=== PATIENT | female | born 1970 | race Caucasian/White ===

== ENCOUNTER 2016-12-19 12:39 | Inpatient (IN) | payer MEDICARE, OTHER ==
[~2016-12-19] VITALS: Ht 154.9 cm; Wt 46.4 kg
[2016-12-19] MEDS ORDERED: SODIUM CHLORIDE 0.9% 1L BAG IV* STA (13:17)
[2016-12-19] MEDS ORDERED: CEFEPIME 2GM/50 ML (PMX) 50 ML IVPB STA (13:17)
[2016-12-19] MEDS ORDERED: VANCOMYCIN 1 GM (PMX) 250 ML IVPB ONE (13:30)
[2016-12-19 13:53] LABS: ADD SCAN DIFF NO
[2016-12-19 13:54] LABS: ABNORMAL IP MESSAGE 1; HEMATOCRIT 53.5 % (37.0-47.0); HEMOGLOBIN 17.5 g/dl (12.0-16.0); MEAN CORPUSCULAR HEMOGLOBIN 29.2 pg (29.0-33.0); MEAN CORPUSCULAR HGB CONC 32.7 g/dl (32.0-37.0); MEAN CORPUSCULAR VOLUME 89.3 fl (82.0-101.0); MEAN PLATELET VOLUME 11.6 fl (7.4-10.4); PLATELET COUNT 188 10^3/UL (140-415); RED BLOOD COUNT 5.99 10^6/ul (4.20-5.40); RED CELL DISTRIBUTION WIDTH 14.3 % (11.5-14.5); WHITE BLOOD COUNT 27.6 10^3/ul (4.8-10.8)
--- NOTE | 2016-12-19 14:04 | RADRPT ---
PROCEDURE: XR Chest. CLINICAL INDICATION: chest pain, sepsis TECHNIQUE: Single frontal view of the chest was obtained COMPARISON: None FINDINGS: The heart and mediastinum are within normal limits. There is elevation of the right diaphragm. The lungs are clear. There is no pleural effusion or pneumothorax. RPTAT: AA IMPRESSION: No acute disease. .Jacob Milan MD, MD Date Time Electronically viewed and signed by .Jacob Milan MD, MD on 12/19/2016 14:04 .S/
[2016-12-19 14:17] LABS: ALANINE AMINOTRANSFERASE 55 IU/L (13-69); ALBUMIN 4.4 g/dl (3.3-4.9); ALBUMIN/GLOBULIN RATIO 1.62; ALKALINE PHOSPHATASE 80 IU/L (42-121); ANION GAP 17 (8-16); ASPARTATE AMINO TRANSFERASE 34 IU/L (15-46); BILIRUBIN,INDIRECT 1.7 mg/dl (0-1.1); BILIRUBIN,TOTAL 1.7 mg/dl (0.2-1.3); BLOOD UREA NITROGEN 15 mg/dl (7-20); CALCIUM 9.4 mg/dl (8.4-10.2); CARBON DIOXIDE 24 mmol/L (21-31); CHLORIDE 104 mmol/L (97-110); GLUCOSE 123 mg/dl (70-220); POTASSIUM 4.2 mmol/L (3.5-5.1); SODIUM 141 mmol/L (135-144); TOTAL PROTEIN 7.1 g/dl (6.1-8.1)
[2016-12-19 14:19] LABS: ADD UMIC YES; UR BILIRUBIN (Dip) NEGATIVE (NEGATIVE); UR BLOOD (Dip) TRACE (NEGATIVE); UR CLARITY CLEAR (CLEAR); UR COLOR YELLOW (YELLOW); UR GLUCOSE (Dip) NEGATIVE (NEGATIVE); UR KETONES (Dip) 40 (NEGATIVE); UR LEUKOCYTE ESTERASE (Dip) NEGATIVE (NEGATIVE); UR NITRITE (Dip) POSITIVE (NEGATIVE); UR TOTAL PROTEIN (Dip) 1+ (NEGATIVE); UR UROBILINOGEN (Dip) 0.2 E.U./dL (0.1-1.0)
[2016-12-19 14:34] LABS: UR BACTERIA MANY
[2016-12-19 14:36] LABS: TROPONIN-I < 0.012 ng/ml (0.00-0.12)
[2016-12-19 14:48] LABS: LYMPHOCYTES # 0.3 10^3/ul (0.8-2.9); MONOCYTE # 1.1 10^3/ul (0.3-0.9); NEUTROPHIL # 25.9 10^3/ul (1.6-7.5)
--- NOTE | 2016-12-19 14:48 | ERA ---
ER Documentation Chief Complaint Date/Time DATE: 12/19/16 TIME: 14:34 Chief Complaint Sent from for eval r/o infection HPI This is an unfortunate 46-year-old female with a history of multiple sclerosis. The patient is completely immobile and relatively a phasic. She communicates with yes or no answers. The patient's family is here and states that she has had a low-grade fever yesterday with 1 or 2 episodes of diarrhea. She then noticed that her mouth looks red and infected. The patient's mouth is chronically open but that yesterday and today the patient is not wanting to eat anything stating that she is in pain. The pain location is in her mouth. The patient denies any other areas of pain. ROS All systems reviewed and are negative except as per history of present illness. Medications Home Meds No Active Prescriptions or Reported Meds Allergies Allergies: Coded Allergies: No Known Allergy (Unverified , 12/19/16) PMhx/Soc History of Surgery: No Anesthesia Reaction: No Hx Neurological Disorder: No Hx Respiratory Disorders: No Hx Cardiac Disorders: No Hx Psychiatric Problems: No Hx Miscellaneous Medical Probl: Yes (MS) Hx Alcohol Use: No Hx Substance Use: No Hx Tobacco Use: No Smoking Status: Never smoker FmHx Family History: No coronary disease Physical Exam Vitals Vital Signs Date Time Temp Pulse Resp B/P Pulse Ox O2 Delivery O2 Flow Rate FiO2 12/19/16 14:43 100 16 141/87 100 Room Air 12/19/16 12:43 98.3 116 20 116/88 100 Physical Exam Const: Well-developed, well-nourished, immobile Head: Atraumatic, normocephalic Eyes: Normal Conjunctiva, PERRLA, EOMI, normal sclera, no nystagmus ENT: Normal External Ears, Nose, diffusely poor dentition, there is erythema and swelling to the upper hard palate in the anterior part of the mouth near the tooth sockets. No abscess.. Neck: Full range of passive motion. No meningismus, no lymphadenopathy. Resp: Clear to auscultation bilaterally, no wheezing, rhonchi, rales Cardio: Regular rate and rhythm, no murmurs, S1 S2 present Abd: Soft, non tender x 4, non distended. Normal bowel sounds, no guarding or rebound, no pulsitile abdominal masses or bruits Skin: No petechiae or rashes, no ecchymosis , no maculopapular rash Back: No midline or flank tenderness Ext: No cyanosis, or edema, no spontaneous range of motion, normal inspection,vascularly intact x 4 Neur: Awake and alert, STR 0/5 x 4, sensation intact x 4 Psych: Unable to assess] Result Diagram: 12/19/16 1330 12/19/16 1330 Results 24 hrs Laboratory Tests Test 12/19/16 13:30 12/19/16 13:40 White Blood Count 27.610^3/ul Red Blood Count 5.9910^6/ul Hemoglobin 17.5g/dl Hematocrit 53.5% Mean Corpuscular Volume 89.3fl Mean Corpuscular Hemoglobin 29.2pg Mean Corpuscular Hemoglobin Concent 32.7g/dl Red Cell Distribution Width 14.3% Platelet Count 72166^3/UL Mean Platelet Volume 11.6fl Neutrophils % 94.0% Band Neutrophils % 1.0% Lymphocytes % 1.0% Monocytes % 4.0% Neutrophils # 25.910^3/ul Lymphocytes # 0.310^3/ul Monocytes # 1.110^3/ul Sodium Level 141mmol/L Potassium Level 4.2mmol/L Chloride Level 104mmol/L Carbon Dioxide Level 24mmol/L Anion Gap 17 Blood Urea Nitrogen 15mg/dl Creatinine 0.70mg/dl Glucose Level 123mg/dl Lactic Acid Level 2.5mmol/L Calcium Level 9.4mg/dl Total Bilirubin 1.7mg/dl Direct Bilirubin 0.00mg/dl Indirect Bilirubin 1.7mg/dl Aspartate Amino Transf (AST/SGOT) 34IU/L Alanine Aminotransferase (ALT/SGPT) 55IU/L Alkaline Phosphatase 80IU/L Troponin I < 0.012ng/ml Total Protein 7.1g/dl Albumin 4.4g/dl Globulin 2.70g/dl Albumin/Globulin Ratio 1.62 Urine Color YELLOW Urine Clarity CLEAR Urine pH 6.0 Urine Specific [place] 1.025 Urine Ketones 40 Urine Nitrite POSITIVE Urine Bilirubin NEGATIVE Urine Urobilinogen 0.2 E.U./dL Urine Leukocyte Esterase NEGATIVE Urine Microscopic RBC 5-10/HPF Urine Microscopic WBC 5-10/HPF Urine Epithelial Cells FEW Urine Bacteria MANY Urine Hemoglobin TRACE Urine Glucose NEGATIVE% Urine Total Protein 1+ Current Medications Medications (Trade) Dose Ordered Sig/Nicci Route PRN Reason Start Time Stop Time Status Last Admin Dose Admin Sodium Chloride 1550 ml 1,550 ml BOLUS OVER 2 HOURS STAT IV* 12/19/16 13:17 12/19/16 13:19 DC 12/19/16 13:49 Cefepime HCl 50 ml @ 100 mls/hr ONCE STAT IVPB 12/19/16 13:17 12/19/16 13:46 DC 12/19/16 13:55 Vancomycin HCl 250 ml @ 125 mls/hr ONCE ONCE IVPB 12/19/16 13:30 12/19/16 15:29 12/19/16 14:36 Sodium Chloride (NS) 1,000 ml @ 80 mls/hr [id number] IV 12/19/16 14:53 12/20/16 03:22 Ondansetron HCl (Zofran Inj) 4 mg ER BRIDGE PRN IV NAUSEA AND/OR VOMITING 12/19/16 15:00 12/20/16 14:59 Acetaminophen (Tylenol Tab) 650 mg ER BRIDGE PRN PO MILD PAIN/FEVER 12/19/16 15:00 12/20/16 14:59 Procedures/MDM Patient is elevated white blood count and does have a urinary tract infection. Patient does have a infection along the inner gingival upper palate and part of the hard palate. Patient has had some diarrhea but says she has no abdominal pain. I will however order a CT scan of the abdomen and pelvis to rule out any possible intra -abdominal pathology. Patient's lactate level is 2.5 and elevated. Admit MDM: Patient's infectious symptoms have not stabilized and the patient is at risk of rapid decompensation. The patient will be admitted for careful hydration, antibiotic therapy, and infectious source control. Severe Sepsis criteria: Infectious source: Mouth, urine End organ damage indicated by: Elevated lactate Lactate > 2.0 mmol/L Hypotension (SBP < 90 or >40 mmHG drop or MAP < 65) Acute Resp Failure (sat < 92% w/o oxygen) Production Corrugator > 2.0 INR > 1.5 Plt < 100 Bili > 2 Sepsis Management: Time of recognition of severe sepsis/septic shock: 1415 Within 3 hours of recognition: Blood cultures x 2 before broad-spectrum antibiotics: Yes 30 ml/kg NS bolus completed Initial lactate 2.5 Repeat lactate pending Accepting Care Team Current data and ongoing care discussed. Time: Admitting Physician: Quote Clerk(s): Outstanding Data: None Critical Care Time: 30 minutes Treatments/Evaluations: Close monitoring and treatment of unstable vital signs, cardiorespiratory, and neurologic status, while maintaining tight balance of fluid, respiratory, and cardiac interventions. This includes the administration of emergency fluid management while maintaining close respiratory support as well as the provision of immediate and broad-spectrum antibiotic therapy, while performing a simultaneous assessment for possible sources in order to direct targeted therapy. This time includes discussing the case with the patient and the patient's family. This time also includes the consideration for invasive and chemical support to prevent cardiopulmonary collapse. This time does not include all procedures stated elsewhere in this record. This time also includes reviewing old records, labs and radiological studies. This time includes examining and re-examining the patient. Additionally, this time also includes arranging care with admitting and consulting physicians. Spoke with Dr. angeles who wants to have me call ENT is consult spoke with dr davis of ENT who will see Departure Diagnosis: Primary Impression: Sepsis Qualified Code: A41.9 - Sepsis, due to unspecified organism Additional Impressions: Urinary tract infection Qualified Code: N30.00 - Acute cystitis without hematuria Infection of mouth Condition: Stable ZHANE BAUER DO Dec 19, 2016 14:44
[2016-12-19] MEDS ORDERED: SOD CHLORIDE 0.9% 1,000 ML IV SCH (14:53)
[2016-12-19] MEDS ORDERED: ONDANSETRON 4 MG INJ IV PRN ×2 (15:00→16:30)
[2016-12-19] MEDS ORDERED: ACETAMINOPHEN 325 MG TAB PO PRN ×2 (15:00→16:30)
[2016-12-19] MEDS ORDERED: metroNIDAZOLE 500 MG/NS (PMX) 100 ML IVPB ONE (16:00)
[2016-12-19] MEDS ORDERED: IODIXANOL LOCM 100 ML BTL ONE (16:13)
[2016-12-19] MEDS ORDERED: SOD CHLORIDE 0.9% 100 ML ONE (16:13)
[2016-12-19] MEDS ORDERED: DOCUSATE SODIUM 100 MG CAP PO PRN (16:30)
[2016-12-19] MEDS ORDERED: VANCOMYCIN IV PER PHARMACY XX SCH (16:30)
[2016-12-19] MEDS ORDERED: MAGNESIUM HYDROXIDE 30ML CUP PO PRN (16:30)
[2016-12-19] MEDS ORDERED: NACL 0.9% 3 ML SYG IV SCH (16:30)
--- NOTE | 2016-12-19 16:49 | HP ---
Date/Time of Note Date/Time of Note DATE: 12/19/16 TIME: 16:41 Assessment/Plan VTE Prophylaxis VTE Prophylaxis Intervention: heparin Assessment/Plan Chief Complaint/Hosp Course 46 y/o with advanced MS admitted for decreased low grade fever, poor PO intake and oral pain. In ER found to be in sepsis with WBC of 26. Problems: Assessment/Plan #sepsis-multiple potential sources including GI given diarrhea, urinary, hand anaerobic infection of hard palate -f/u cultures -c diff -ENT consult to evaluate for oral infection -IVF -broad empiric abx coverage: Vanc, Cefepime and flagyl (for potential anaerobic infection including c diff -tele monitoring -repeat lactic acid in am -low threshold for ID consult #MS-advanced. Followed outpatient by Dr. NADIA Gamez -hold copaxone for now Dispo: patient likely to be hospitalized >2 days. HPI/ROS Admit Date/Time Admit Date/Time 12/19/2016 Hx of Present Illness 46 y/o female with advanced MS. Brought in by family for low grade fever, diarrhea x2, decreased po intake and hard palate pain. Patient also had one episode of emesis last night. Patient can only give simple one word answers. Denies abdominal pain but endorses oral pain. In ER patient had sepsis workup. Was empirically treated with IV vanc, cefepime. CT abdomen, pelvis done, no acute findings at this time.Found to have UTI. ENT called to evaluate hard palate for possible infection. History provided mostly by family. Primary point of contact is Lizbet, daughter. ROS See HPI. No chest pain, sob, cough, dysuria, abdominal pain. No active nausea or vomiting. PMH/Family/Social Past Medical History Multiple sclerosis-relapsing and progressive FM Hx- non contributory for this patient SH: lives with sister, mom, dad. Sister primary caregiver Social History Smoking Status: Never smoker Exam/Review of Systems Vital Signs Vitals Vital Signs Date Time Temp Pulse Resp B/P Pulse Ox O2 Delivery O2 Flow Rate FiO2 12/19/16 14:43 100 16 141/87 100 Room Air 12/19/16 12:43 98.3 Exam Exam GEN-No acute distress. Cachectic. Only months simple one word answers HEENT- Erythematous and tender upper hard palate, no scleral icterus CV-rrr, nml s1/s2, no m/r/g pulm-CTAB on anterior exam Abdomen-soft, nt, nd, +BS Ext-no c/c/e, contracted x 4 Labs Result Diagram: 12/19/16 1330 12/19/16 1330 Medications Medications Current Medications Sodium Chloride 1,000 ml @ 80 mls/hr [id number] IV ; Start 12/19/16 at 14:53; Stop 12/20/16 at 03:22 Metronidazole (Flagyl 500 Mg (Pmx)) 100 ml @ 100 mls/hr ONCE ONCE IVPB ; Start 12/19/16 at 16:00; Stop 12/19/16 at 16:59 JERAMIE BRUNSON MD Dec 19, 2016 16:49
--- NOTE | 2016-12-19 17:33 | RADRPT ---
PROCEDURE: CT abdomen and pelvis with contrast. CLINICAL INDICATION: Periumbilical abdominal pain TECHNIQUE: CT scan of the abdomen and pelvis with contrast was performed on the CT scanner. The p atient was scanned with 90 cc of Omnipaque 300 intravenous contrast. Oral contrast was not administ ered. 3-D coronal and sagittal reformatted images were obtained from the axial source images. Exam D L P 329 mgy/cm. CTD vol 6 mgy. One or more of the following dose reduction techniques were used: Automated exposure control Adjustment of the mA and/or kV according to patient size. Use of iterative reconstruction technique. COMPARISON: None. FINDINGS: CT abdomen: The lung bases are clear. The heart size is normal, without pericardial thickening or effusion. The ascending aorta is mildly prominent at 3.7 x 3.7 cm. There is a 9 cm cephalocaudad by 7 x 6 cm hemangioma involving the right lobe of the liver diffusely .. The spleen is normal in size and homogeneous in density. The stomach is partially collapsed, bu t is grossly unremarkable. The pancreas as visualized is normal. There are multiple gallstones with in the gallbladder with mild prominence of the gallbladder wall, likely due to hypoproteinemia. The adrenal glands are symmetric and normal. The kidneys are symmetrically unremarkable as well. N o renal calculus or obstructive uropathy or mass lesion is seen. The aorta is of normal caliber. There is no retroperitoneal lymphadenopathy. The nola hepatis reg ion is clear. The bowel and mesentery, as visualized, are equally unremarkable. There is mild abdom inal ascites. CT pelvis: The small bowel loops situated within the pelvis are unremarkable. The appendix is normal. The sigmoid colon and rectum are all unremarkable. No mass, lymphadenopathy, or free fluid is seen. No acute inflammation is seen. There are no findings of acute diverticulitis, obstruction or coli tis. There is severe fecal impaction with associated mild constipation. The pelvic organs are unremarkable. The pelvic sidewalls and inguinal regions are clear. The surrounding osseous structures are unremarkable. No osteolytic or osteoblastic lesion is detect ed. IMPRESSION: 1. No findings of free air, bowel perforation, bowel obstruction or definite acute inflammation. M ultiple gallstones within the gallbladder with prominence of the gallbladder wall, likely related to hypoproteinemia. 2. Mild ascites, mild constipation, severe fecal impaction, and benign, 9 cm hepatic hemangioma. M ild prominence of the thoracic aorta at 3.7 x 3.7 cm. RPTAT: RR .Araseli Porras MD, Date Time Electronically viewed and signed by .Araseli Porras MD, on 12/19/2016 17:32 .F/
[2016-12-19 20:02] VITALS: PULSE 106
[2016-12-19 20:04] VITALS: BP 114/77; RESP 16
[2016-12-19] MEDS: HEPARIN 5,000 UNIT/0.5 ML VIAL SC SCH (20:18)
[2016-12-19 20:30] VITALS: Ht 154.9 cm; Wt 46.4 kg
[2016-12-19] MEDS ORDERED: HEPARIN 5,000 UNIT/0.5 ML VIAL SC SCH (21:00)
[2016-12-19] MEDS: SOD CHLORIDE 0.9% 1,000 ML IV SCH (21:43)
[2016-12-19] MEDS: metroNIDAZOLE 500 MG/NS (PMX) 100 ML IVPB SCH (21:45)
[2016-12-19] MEDS: CEFEPIME 2GM/50 ML (PMX) 50 ML IVPB SCH (22:43)
[2016-12-20] VITALS (13 sets, daily range): BP systolic 100–125; BP diastolic 51–85; PULSE 104–119; RESP 16–19
[2016-12-20] MEDS: SOD CHLORIDE 0.9% 1,000 ML IV SCH ×3 (02:23→22:23)
[2016-12-20] MEDS: VANCOMYCIN 750 MG in SOD CHLORIDE 0.9% 150 ML IVPB SCH ×2 (02:57→16:18)
[2016-12-20] MEDS ORDERED: PENDING SANTYL ORDER FOR WOUND CARE XX PRN (05:00)
[2016-12-20] MEDS: CEFEPIME 2GM/50 ML (PMX) 50 ML IVPB SCH ×3 (05:17→21:13)
[2016-12-20 05:43] LABS: ADD SCAN DIFF NO
[2016-12-20 06:01] LABS: ABNORMAL IP MESSAGE 1; BASOPHIL # 0.1 10^3/ul (0.0-0.1); BASOPHILS % 0.2 % (0.0-2.0); HEMATOCRIT 43.2 % (37.0-47.0); HEMOGLOBIN 14.2 g/dl (12.0-16.0); LYMPHOCYTES # 1.1 10^3/ul (0.8-2.9); LYMPHOCYTES % 5.1 % (15.0-51.0); MEAN CORPUSCULAR HEMOGLOBIN 29.3 pg (29.0-33.0); MEAN CORPUSCULAR HGB CONC 32.9 g/dl (32.0-37.0); MEAN CORPUSCULAR VOLUME 89.1 fl (82.0-101.0); MEAN PLATELET VOLUME 11.4 fl (7.4-10.4); MONOCYTE # 0.8 10^3/ul (0.3-0.9); MONOCYTES % 3.5 % (0.0-11.0); NEUTROPHIL # 20.1 10^3/ul (1.6-7.5); NEUTROPHILS % 90.7 % (39.0-77.0); PLATELET COUNT 177 10^3/UL (140-415); RED BLOOD COUNT 4.85 10^6/ul (4.20-5.40); RED CELL DISTRIBUTION WIDTH 14.6 % (11.5-14.5); WHITE BLOOD COUNT 22.1 10^3/ul (4.8-10.8)
[2016-12-20] MEDS: metroNIDAZOLE 500 MG/NS (PMX) 100 ML IVPB SCH ×3 (06:11→22:20)
[2016-12-20 06:28] LABS: ALBUMIN 2.8 g/dl (3.3-4.9); ALBUMIN/GLOBULIN RATIO 1.33; BILIRUBIN,INDIRECT 1.1 mg/dl (0-1.1); BILIRUBIN,TOTAL 1.1 mg/dl (0.2-1.3); CALCIUM 8.3 mg/dl (8.4-10.2); CREATININE 0.55 mg/dl (0.44-1.00); MAGNESIUM 1.6 mg/dl (1.7-2.5); POTASSIUM 3.2 mmol/L (3.5-5.1); TOTAL PROTEIN 4.9 g/dl (6.1-8.1)
--- NOTE | 2016-12-20 07:48 | CONS ---
Date/Time of Note Date/Time of Note DATE: 12/20/16 TIME: 07:44 Assessment/Plan Assessment/Plan Problems: (1) Multiple sclerosis Comment: severe, progressive... non verbal now (2) Urinary tract infection Status: Acute Comment: cxs still pd... on broad abx...WBC sl less today Qualifiers: Urinary tract infection type: acute cystitis Hematuria presence: without hematuria Qualified Code: N30.00 - Acute cystitis without hematuria (3) Sepsis Status: Acute Comment: blood/urine cxs pd... on broad abx Qualifiers: Sepsis type: sepsis due to unspecified organism Qualified Code: A41.9 - Sepsis, due to unspecified organism (4) Infection of mouth Status: Acute Comment: await ENT hardeep Andrade (5) Constipation Comment: noted on CT... will give laxatives Consultation Date/Type/Reason Admit Date/Time Dec 19, 2016 at 14:55 Initial Consult Date Type of Consultation: neph 24 HR Interval Summary Free Text/Dictation non verbal... seems comfortable tho... awaiting ENT hardeep Andrade Exam/Review of Systems Vital Signs Vitals Vital Signs Date Time Temp Pulse Resp B/P Pulse Ox O2 Delivery O2 Flow Rate FiO2 12/20/16 07:28 99.8 115 18 100/51 94 12/19/16 14:43 Room Air Intake and Output 12/19/16 12/19/16 12/20/16 15:00 23:00 07:00 Intake Total 50 ml 1350 ml 750 ml Balance 50 ml 1350 ml 750 ml Exam Constitutional: alert, non-verbal Head: normocephalic Neck: supple Respiratory: clear to auscultation Cardiovascular: regular rate and rhythm Gastrointestinal: soft Extremities: normal pulses Results Result Diagram: 12/20/16 0510 12/20/16 0510 Results 24 hrs Laboratory Tests Test 12/19/16 13:30 12/19/16 13:40 12/20/16 05:10 White Blood Count 27.6 H 22.1 H Red Blood Count 5.99 H 4.85 Hemoglobin 17.5 H 14.2 Hematocrit 53.5 H 43.2 Mean Corpuscular Volume 89.3 89.1 Mean Corpuscular Hemoglobin 29.2 29.3 Mean Corpuscular Hemoglobin Concent 32.7 32.9 Red Cell Distribution Width 14.3 14.6 H Platelet Count 188 177 Mean Platelet Volume 11.6 H 11.4 H Neutrophils % 94.0 H 90.7 H Band Neutrophils % 1.0 Lymphocytes % 1.0 L 5.1 L Monocytes % 4.0 3.5 Neutrophils # 25.9 H 20.1 H Lymphocytes # 0.3 L 1.1 Monocytes # 1.1 H 0.8 Sodium Level 141 141 Potassium Level 4.2 3.2 L Chloride Level 104 114 H Carbon Dioxide Level 24 17 L Anion Gap 17 H 13 Blood Urea Nitrogen 15 15 Creatinine 0.70 0.55 Glucose Level 123 91 Lactic Acid Level 2.5 H 0.8 Calcium Level 9.4 8.3 L Total Bilirubin 1.7 H 1.1 Direct Bilirubin 0.00 0.00 Indirect Bilirubin 1.7 H 1.1 Aspartate Amino Transf (AST/SGOT) 34 15 Alanine Aminotransferase (ALT/SGPT) 55 42 Alkaline Phosphatase 80 65 Troponin I < 0.012 Total Protein 7.1 4.9 #L Albumin 4.4 2.8 #L Globulin 2.70 2.10 Albumin/Globulin Ratio 1.62 1.33 Urine Color YELLOW Urine Clarity CLEAR Urine pH 6.0 Urine Specific [place] 1.025 Urine Ketones 40 Urine Nitrite POSITIVE H Urine Bilirubin NEGATIVE Urine Urobilinogen 0.2 E.U./dL Urine Leukocyte Esterase NEGATIVE Urine Microscopic RBC 5-10 Urine Microscopic WBC 5-10 Urine Epithelial Cells FEW Urine Bacteria MANY Urine Hemoglobin TRACE Urine Glucose NEGATIVE Urine Total Protein 1+ H Eosinophils % 0.0 Basophils % 0.2 Nucleated Red Blood Cells % 0.0 Eosinophils # 0.0 Basophils # 0.1 Nucleated Red Blood Cells # 0.0 Magnesium Level 1.6 L Medications Medications Current Medications Sodium Chloride (NS) 1,000 ml @ 100 mls/hr Q10H IV Last administered on t 21:43; Admin Dose 100 MLS/HR; Start 12/19/16 at 16:23; Stop 12/21/16 at 16: 22 Ondansetron HCl (Zofran Inj) 4 mg Q6H PRN IV NAUSEA AND/OR VOMITING; Start 05/27 at 16:30 Acetaminophen (Tylenol Tab) 650 mg Q6H PRN PO PAIN LEVEL 1-3 OR FEVER; Start at 16:30 Docusate Sodium (Colace) 100 mg Q12H PRN PO CONSTIPATION; Start 12/19/16 at 16: 30 Magnesium Hydroxide 30 ml 30 ml DAILY PRN PO CONSTIPATION; Start 12/19/16 at 16 :30 Cefepime HCl 50 ml @ 100 mls/hr Q8 IVPB Last administered on 12/20/16 05:17; Admin Dose 100 MLS/HR; Start 12/19/16 at 22:00 Metronidazole 100 ml @ 100 mls/hr Q8 IVPB Last administered on 12/20/16 06:11 ; Admin Dose 100 MLS/HR; Start 12/19/16 at 22:00 Vancomycin HCl/ Sodium Chloride (Vancocin/NS) 150 ml @ 75 mls/hr Q12H IVPB Last administered on 12/20/16 02:57; Admin Dose 75 MLS/HR; Start 12/20/16 at 02 :00 Heparin Sodium (Porcine) (Heparin (5000 Units/0.5 ml)) 5,000 unit BID SC Last administered on 12/19/16 20:18; Admin Dose 5,000 UNIT; Start 12/19/16 at 21:00 Miscellaneous Information (Pending Santyl Order For Wound Care) This patient martinez... PRN PRN XX WOUND CARE; Start 12/20/16 at 05:00 SOPHIA MONROE MD Dec 20, 2016 07:48
[2016-12-20] MEDS ORDERED: SORBITOL 70% 30ML CUP PO ONE (09:30)
[2016-12-20] MEDS: HEPARIN 5,000 UNIT/0.5 ML VIAL SC SCH ×2 (09:32→21:16)
[2016-12-20] MEDS: POTASSIUM CHLORIDE 50 ML IVPB SCH ×3 (09:36→12:22)
[2016-12-20] MEDS ORDERED: MAGNESIUM SULFATE 3 GM in SOD CHLORIDE 0.9% 100 ML IVPB ONE (10:00)
[2016-12-20] MEDS ORDERED: SORBITOL 70% 30ML CUP PO PRN (10:00)
[2016-12-20] MEDS: morphine 4 MG/ML VIAL IV PRN ×2 (12:21→18:01)
--- NOTE | 2016-12-20 13:42 | HP ---
DATE OF ADMISSION: 12/19/2016 HISTORY OF PRESENT ILLNESS: Sandra Lopez is a 46-year-old female admitted yesterday with an oral in fection, some palatal swelling was noted and ENT was consulted to evaluate. She is presently on van comycin and metronidazole as well as cefepime for her infection. She is mostly nonverbal due to her progressive severe multiple sclerosis but she is able to answer simple questions. PAST MEDICAL HISTORY: Severe progressive multiple sclerosis, UTI, sepsis. PAST SURGICAL HISTORY: Noncontributory. ALLERGIES: NO KNOWN DRUG ALLERGIES. MEDICATIONS: 1. Zofran. 2. Colace. 3. Magnesium. 4. Cefepime. 5. Metronidazole. 6. Vancomycin. 7. Heparin. SOCIAL HISTORY: Negative for alcohol, tobacco or drug abuse. FAMILY HISTORY: Negative for any heart, lung, kidney failure, liver disease. REVIEW OF SYSTEMS: Difficult because of her difficulty communicating. PHYSICAL EXAMINATION: HEENT: On examination today the nose shows midline septum. Mucosa without erythema, edema. Oral c avity and oropharynx showed dry mucous membranes. She does have some mild swelling of the anterior palate just posterior to teeth 7, 8, 9 and 10. It is mildly erythematous and her gums seem to be ten beth as well. The oropharynx was without lesion. NECK: Reveals no lymphadenopathy or thyromegaly. Trachea is midline. ___ without lesion. IMPRESSION: Oral infection. PLAN: At this point, the antibiotics she is on more than cover her infection and to her it does see m to be better today compared to yesterday. With that being said, I would continue the cefepime or a similar cephalosporin for 7 to 10 days total, based on her progression. If there are any questions or concerns, please feel free to reconsult at any time. Dictated By: STEPH BETH/DENISSE Conf#: [id number] DID#: [id number]
[2016-12-21] VITALS (12 sets, daily range): BP systolic 120–156; BP diastolic 70–90; PULSE 88–100; RESP 18–19
[2016-12-21] MEDS: VANCOMYCIN 750 MG in SOD CHLORIDE 0.9% 150 ML IVPB SCH (03:21)
[2016-12-21] MEDS: metroNIDAZOLE 500 MG/NS (PMX) 100 ML IVPB SCH (05:38)
[2016-12-21] MEDS: CEFEPIME 2GM/50 ML (PMX) 50 ML IVPB SCH ×3 (05:38→21:25)
[2016-12-21] MEDS: SOD CHLORIDE 0.9% 1,000 ML IV SCH (05:39)
[2016-12-21 07:04] LABS: ADD SCAN DIFF NO
[2016-12-21 07:13] LABS: BASOPHILS % 0.3 % (0.0-2.0); EOSINOPHILS # 0.1 10^3/ul (0.0-0.5); EOSINOPHILS % 0.8 % (0.0-7.0); HEMATOCRIT 40.7 % (37.0-47.0); HEMOGLOBIN 13.4 g/dl (12.0-16.0); LYMPHOCYTES # 1.2 10^3/ul (0.8-2.9); LYMPHOCYTES % 8.9 % (15.0-51.0); MEAN CORPUSCULAR HEMOGLOBIN 29.8 pg (29.0-33.0); MEAN CORPUSCULAR HGB CONC 32.9 g/dl (32.0-37.0); MEAN CORPUSCULAR VOLUME 90.6 fl (82.0-101.0); MEAN PLATELET VOLUME 10.8 fl (7.4-10.4); MONOCYTE # 0.5 10^3/ul (0.3-0.9); MONOCYTES % 4.1 % (0.0-11.0); NEUTROPHIL # 11.3 10^3/ul (1.6-7.5); NEUTROPHILS % 85.5 % (39.0-77.0); PLATELET COUNT 159 10^3/UL (140-415); RED BLOOD COUNT 4.49 10^6/ul (4.20-5.40); WHITE BLOOD COUNT 13.2 10^3/ul (4.8-10.8)
[2016-12-21 07:43] LABS: ALBUMIN/GLOBULIN RATIO 1.25; CALCIUM 8.1 mg/dl (8.4-10.2); CREATININE 0.55 mg/dl (0.44-1.00); POTASSIUM 3.8 mmol/L (3.5-5.1); TOTAL PROTEIN 5.4 g/dl (6.1-8.1)
--- NOTE | 2016-12-21 07:50 | CONS ---
Date/Time of Note Date/Time of Note DATE: 12/21/16 TIME: 07:47 Assessment/Plan Assessment/Plan Problems: (1) Urinary tract infection Status: Acute Comment: GNR... ID pd, but cont improvement in leukocytosis on current abx Qualifiers: Urinary tract infection type: acute cystitis Hematuria presence: without hematuria Qualified Code: N30.00 - Acute cystitis without hematuria (2) Sepsis Status: Acute Comment: blood cxs (-)...(+) UTI tho... markedly better w hydration + abx Qualifiers: Sepsis type: sepsis due to unspecified organism Qualified Code: A41.9 - Sepsis, due to unspecified organism (3) Infection of mouth Status: Acute Comment: pt has refused any NGT or PEG... as is much more alert now, will revisit speech eval/swallow eval (4) Multiple sclerosis Comment: severe, progressive... at baseline (5) Constipation Comment: see if hydration + lax will help Consultation Date/Type/Reason Admit Date/Time Dec 19, 2016 at 14:55 Type of Consultation: neph 24 HR Interval Summary Free Text/Dictation much more awake. alert... answering questions... more engaged Exam/Review of Systems Vital Signs Vitals Vital Signs Date Time Temp Pulse Resp B/P Pulse Ox O2 Delivery O2 Flow Rate FiO2 12/21/16 07:25 98.6 91 19 128/82 98 12/19/16 14:43 Room Air Intake and Output 12/20/16 12/20/16 12/21/16 15:00 23:00 07:00 Intake Total 100 ml 650 ml Balance 100 ml 650 ml Exam Constitutional: alert Psych: no complaints Head: normocephalic Eyes: nl conjunctiva Respiratory: clear to auscultation Cardiovascular: regular rate and rhythm Gastrointestinal: soft Extremities: normal pulses Results Result Diagram: 12/21/16 0625 12/20/16 0510 Results 24 hrs Laboratory Tests Test 12/21/16 00:59 12/21/16 06:25 Vancomycin Level Trough 14.6 White Blood Count 13.2 #H Red Blood Count 4.49 Hemoglobin 13.4 Hematocrit 40.7 Mean Corpuscular Volume 90.6 Mean Corpuscular Hemoglobin 29.8 Mean Corpuscular Hemoglobin Concent 32.9 Red Cell Distribution Width 15.0 H Platelet Count 159 Mean Platelet Volume 10.8 H Neutrophils % 85.5 H Lymphocytes % 8.9 L Monocytes % 4.1 Eosinophils % 0.8 Basophils % 0.3 Nucleated Red Blood Cells % 0.0 Neutrophils # 11.3 H Lymphocytes # 1.2 Monocytes # 0.5 Eosinophils # 0.1 Basophils # 0.0 Nucleated Red Blood Cells # 0.0 Medications Medications Current Medications Sodium Chloride (NS) 1,000 ml @ 100 mls/hr Q10H IV Last administered on 05:39; Admin Dose 100 MLS/HR; Start 12/19/16 at 16:23; Stop 12/21/16 at 16: 22 Ondansetron HCl (Zofran Inj) 4 mg Q6H PRN IV NAUSEA AND/OR VOMITING; Start 05/27 at 16:30 Acetaminophen (Tylenol Tab) 650 mg Q6H PRN PO PAIN LEVEL 1-3 OR FEVER; Start at 16:30 Docusate Sodium (Colace) 100 mg Q12H PRN PO CONSTIPATION; Start 12/19/16 at 16: 30 Magnesium Hydroxide 30 ml 30 ml DAILY PRN PO CONSTIPATION; Start 12/19/16 at 16 :30 Cefepime HCl 50 ml @ 100 mls/hr Q8 IVPB Last administered on 12/21/16 05:38; Admin Dose 100 MLS/HR; Start 12/19/16 at 22:00 Metronidazole 100 ml @ 100 mls/hr Q8 IVPB Last administered on 12/21/16 05:38 ; Admin Dose 100 MLS/HR; Start 12/19/16 at 22:00 Vancomycin HCl/ Sodium Chloride (Vancocin/NS) 150 ml @ 75 mls/hr Q12H IVPB Last administered on 12/21/16 03:21; Admin Dose 75 MLS/HR; Start 12/20/16 at 02 :00 Heparin Sodium (Porcine) (Heparin (5000 Units/0.5 ml)) 5,000 unit BID SC Last administered on 12/20/16 21:16; Admin Dose 5,000 UNIT; Start 12/19/16 at 21:00 Miscellaneous Information (Pending [facility]) This patient martinez... PRN PRN XX WOUND CARE; Start 12/20/16 at 05:00 Sorbitol (Sorbitol 70%) 30 ml BID PRN PO CONSTIPATION; Start 12/20/16 at 10:00 Morphine Sulfate (morphine) 2 mg Q2H PRN IV PAIN; Start 12/20/16 at 12:30 Morphine Sulfate (morphine) 4 mg Q3H PRN IV PAIN LEVEL 7-10 Last administered on 12/20/16t 18:01; Admin Dose 4 MG; Start 12/20/16 at 12:30 SOPHIA MONROE MD Dec 21, 2016 07:50
[2016-12-21] MEDS: HEPARIN 5,000 UNIT/0.5 ML VIAL SC SCH ×2 (08:04→21:49)
[2016-12-21] MEDS: DEXTROSE 5%-0.9% NACL 1,000 ML IV SCH ×2 (08:06→17:30)
[2016-12-22] VITALS (10 sets, daily range): BP systolic 99–145; BP diastolic 77–94; PULSE 73–81; RESP 16–19
[2016-12-22] MEDS ORDERED: VITAMIN A & D 5 GM OINT PACKET TOP ONE (04:37)
[2016-12-22] MEDS: CEFEPIME 2GM/50 ML (PMX) 50 ML IVPB SCH ×3 (05:18→23:25)
[2016-12-22] MEDS: DEXTROSE 5%-0.9% NACL 1,000 ML IV SCH (05:21)
[2016-12-22 06:15] LABS: ADD SCAN DIFF NO
[2016-12-22 06:35] LABS: BASOPHILS % 0.4 % (0.0-2.0); EOSINOPHILS # 0.2 10^3/ul (0.0-0.5); EOSINOPHILS % 2.6 % (0.0-7.0); HEMATOCRIT 37.3 % (37.0-47.0); HEMOGLOBIN 12.7 g/dl (12.0-16.0); LYMPHOCYTES # 1.2 10^3/ul (0.8-2.9); LYMPHOCYTES % 15.2 % (15.0-51.0); MONOCYTE # 0.4 10^3/ul (0.3-0.9); NEUTROPHIL # 6.2 10^3/ul (1.6-7.5); NEUTROPHILS % 76.4 % (39.0-77.0); PLATELET COUNT 176 10^3/UL (140-415); RED BLOOD COUNT 4.24 10^6/ul (4.20-5.40); RED CELL DISTRIBUTION WIDTH 14.8 % (11.5-14.5); WHITE BLOOD COUNT 8.2 10^3/ul (4.8-10.8)
[2016-12-22 07:32] LABS: ALBUMIN 2.3 g/dl (3.3-4.9); ALBUMIN/GLOBULIN RATIO 1.04; BILIRUBIN,INDIRECT 0.8 mg/dl (0-1.1); BILIRUBIN,TOTAL 0.8 mg/dl (0.2-1.3); CALCIUM 7.6 mg/dl (8.4-10.2); CREATININE 0.39 mg/dl (0.44-1.00); POTASSIUM 3.2 mmol/L (3.5-5.1); TOTAL PROTEIN 4.5 g/dl (6.1-8.1)
--- NOTE | 2016-12-22 07:41 | PN ---
Date/Time of Note Date/Time of Note DATE: 12/22/16 TIME: 07:39 Assessment/Plan VTE Prophylaxis VTE Prophylaxis Intervention: other Lines/Catheters IV Catheter Type (from Nrsg): Peripheral IV Urinary Cath still in place: No Assessment/Plan Assessment/Plan 1. UTI being treated, will check post void residual 2. Will rev with Dr. Meredith, swallowing status 3. MS, advanced 4. Labs rev Subjective 24 Hr Interval Summary Respiratory: No cough, No shortness of breath Gastrointestinal: No pain Exam/Review of Systems Vital Signs Vitals Vital Signs Date Time Temp Pulse Resp B/P Pulse Ox O2 Delivery O2 Flow Rate FiO2 12/22/16 07:33 98.2 80 16 131/83 99 12/19/16 14:43 Room Air Intake and Output 12/21/16 12/21/16 12/22/16 15:00 23:00 07:00 Intake Total 50 ml 1050 ml Balance 50 ml 1050 ml Exam Neck: No jvd Cardiovascular: regular rate and rhythm Gastrointestinal: soft Extremities: No edema (and no calf tend) Neurological: No other (generalized weakness) Results Result Diagram: 12/22/16 0530 12/22/16 0530 Results 24 hrs Laboratory Tests Test 12/22/16 05:30 White Blood Count 8.2 # Red Blood Count 4.24 Hemoglobin 12.7 Hematocrit 37.3 Mean Corpuscular Volume 88.0 Mean Corpuscular Hemoglobin 30.0 Mean Corpuscular Hemoglobin Concent 34.0 Red Cell Distribution Width 14.8 H Platelet Count 176 Mean Platelet Volume 11.0 H Neutrophils % 76.4 Lymphocytes % 15.2 Monocytes % 5.0 Eosinophils % 2.6 Basophils % 0.4 Nucleated Red Blood Cells % 0.0 Neutrophils # 6.2 Lymphocytes # 1.2 Monocytes # 0.4 Eosinophils # 0.2 Basophils # 0.0 Nucleated Red Blood Cells # 0.0 Sodium Level 141 Potassium Level 3.2 L Chloride Level 117 H Carbon Dioxide Level 19 L Anion Gap 8 Blood Urea Nitrogen 8 Creatinine 0.39 L Glucose Level 117 # Lactic Acid Level 0.7 Calcium Level 7.6 L Total Bilirubin 0.8 Direct Bilirubin 0.00 Indirect Bilirubin 0.8 Aspartate Amino Transf (AST/SGOT) 9 L Alanine Aminotransferase (ALT/SGPT) 29 Alkaline Phosphatase 48 Total Protein 4.5 L Albumin 2.3 L Globulin 2.20 Albumin/Globulin Ratio 1.04 Medications Medications Current Medications Ondansetron HCl (Zofran Inj) 4 mg Q6H PRN IV NAUSEA AND/OR VOMITING; Start 05/27 at 16:30 Acetaminophen (Tylenol Tab) 650 mg Q6H PRN PO PAIN LEVEL 1-3 OR FEVER; Start at 16:30 Docusate Sodium (Colace) 100 mg Q12H PRN PO CONSTIPATION; Start 12/19/16 at 16: 30 Magnesium Hydroxide 30 ml 30 ml DAILY PRN PO CONSTIPATION; Start 12/19/16 at 16 :30 Cefepime HCl (Maxipime 2gm/50 ml (Pmx)) 50 ml @ 100 mls/hr Q8 IVPB Last administered on 12/22/16 05:18; Admin Dose 100 MLS/HR; Start 12/19/16 at 22:00 Heparin Sodium (Porcine) (Heparin (5000 Units/0.5 ml)) 5,000 unit BID SC Last administered on 12/21/16 21:49; Admin Dose 5,000 UNIT; Start 12/19/16 at 21:00 Miscellaneous Information (Pending [facility] Order For Wound Care) This patient martinez... PRN PRN XX WOUND CARE; Start 12/20/16 at 05:00 Sorbitol (Sorbitol 70%) 30 ml BID PRN PO CONSTIPATION; Start 12/20/16 at 10:00 Morphine Sulfate (morphine) 2 mg Q2H PRN IV PAIN; Start 12/20/16 at 12:30 Morphine Sulfate 4 mg 4 mg Q3H PRN IV PAIN LEVEL 7-10 Last administered on 12/20 18:01; Admin Dose 4 MG; Start 12/20/16 at 12:30 Dextrose/Sodium Chloride (D5-NS) 1,000 ml @ 100 mls/hr Q10H IV Last administered on 12/22/16 05:21; Admin Dose 100 MLS/HR; Start 12/21/16 at 08:00 LAURITA ESPINO MD Dec 22, 2016 07:41
[2016-12-22] MEDS: HEPARIN 5,000 UNIT/0.5 ML VIAL SC SCH ×2 (08:30→20:56)
[2016-12-22 10:16] LABS: ADD SCAN DIFF NO
[2016-12-22 10:32] LABS: BASOPHILS % 0.2 % (0.0-2.0); EOSINOPHILS # 0.2 10^3/ul (0.0-0.5); EOSINOPHILS % 2.1 % (0.0-7.0); HEMATOCRIT 39.8 % (37.0-47.0); HEMOGLOBIN 13.2 g/dl (12.0-16.0); LYMPHOCYTES # 1.1 10^3/ul (0.8-2.9); LYMPHOCYTES % 14.1 % (15.0-51.0); MEAN CORPUSCULAR HEMOGLOBIN 29.3 pg (29.0-33.0); MEAN CORPUSCULAR HGB CONC 33.2 g/dl (32.0-37.0); MEAN CORPUSCULAR VOLUME 88.2 fl (82.0-101.0); MEAN PLATELET VOLUME 11.1 fl (7.4-10.4); MONOCYTE # 0.4 10^3/ul (0.3-0.9); MONOCYTES % 4.8 % (0.0-11.0); NEUTROPHIL # 6.4 10^3/ul (1.6-7.5); NEUTROPHILS % 78.6 % (39.0-77.0); PLATELET COUNT 168 10^3/UL (140-415); RED BLOOD COUNT 4.51 10^6/ul (4.20-5.40); WHITE BLOOD COUNT 8.1 10^3/ul (4.8-10.8)
[2016-12-22 10:42] LABS: CALCIUM 7.7 mg/dl (8.4-10.2); CREATININE 0.42 mg/dl (0.44-1.00); PHOSPHORUS 1.2 mg/dl (2.5-4.9)
[2016-12-22 10:45] LABS: POTASSIUM 2.8 mmol/L (3.5-5.1)
[2016-12-22 14:10] LABS: Allen Test ACCEPTAB; Arterial Base Excess -5.1 mmol/L (-3.0-3); Arterial COHb 0.1 % (0.0-3.0); Arterial Fraction of Oxyhgb 97.2 % (93.0-99.0); Arterial HCO3 16.7 mmol/L (22.0-26.0); Arterial MetHb 0.4 % (0.0-1.5); Arterial Total Hemglobin 14.2 g/dl (12.0-18.0); MODE ROOM AIR
[2016-12-22] MEDS: D5W-0.45 NACL + KCL 40 MEQ 1,000 ML IV SCH (14:45)
[2016-12-22] MEDS ORDERED: POTASSIUM PHOSPHATE 30 MM in SOD CHLORIDE 0.9% 250 ML IVPB SCH (15:00)
[2016-12-22] MEDS ORDERED: POTASSIUM CHLORIDE 30 MEQ in DEXTROSE 5% 250 ML IVPB SCH (15:00)
[2016-12-23] VITALS (11 sets, daily range): BP systolic 113–134; BP diastolic 75–92; PULSE 70–90; RESP 15–18
[2016-12-23 00:50] LABS: PHOSPHORUS 4.2 mg/dl (2.5-4.9); POTASSIUM 4.1 mmol/L (3.5-5.1)
[2016-12-23] MEDS: D5W-0.45 NACL + KCL 40 MEQ 1,000 ML IV SCH (04:20)
[2016-12-23] MEDS: CEFEPIME 2GM/50 ML (PMX) 50 ML IVPB SCH ×3 (05:12→20:27)
[2016-12-23 05:58] LABS: ADD SCAN DIFF NO
[2016-12-23 06:11] LABS: BASOPHILS % 0.4 % (0.0-2.0); EOSINOPHILS # 0.2 10^3/ul (0.0-0.5); EOSINOPHILS % 2.5 % (0.0-7.0); HEMATOCRIT 40.4 % (37.0-47.0); HEMOGLOBIN 13.6 g/dl (12.0-16.0); LYMPHOCYTES # 1.6 10^3/ul (0.8-2.9); LYMPHOCYTES % 21.4 % (15.0-51.0); MEAN CORPUSCULAR HEMOGLOBIN 29.5 pg (29.0-33.0); MEAN CORPUSCULAR HGB CONC 33.7 g/dl (32.0-37.0); MEAN CORPUSCULAR VOLUME 87.6 fl (82.0-101.0); MEAN PLATELET VOLUME 10.9 fl (7.4-10.4); MONOCYTE # 0.4 10^3/ul (0.3-0.9); MONOCYTES % 5.5 % (0.0-11.0); NEUTROPHIL # 5.2 10^3/ul (1.6-7.5); NEUTROPHILS % 69.8 % (39.0-77.0); PLATELET COUNT 171 10^3/UL (140-415); RED BLOOD COUNT 4.61 10^6/ul (4.20-5.40); RED CELL DISTRIBUTION WIDTH 14.8 % (11.5-14.5); WHITE BLOOD COUNT 7.5 10^3/ul (4.8-10.8)
[2016-12-23 06:55] LABS: CALCIUM 7.8 mg/dl (8.4-10.2); CREATININE 0.38 mg/dl (0.44-1.00); MAGNESIUM 1.6 mg/dl (1.7-2.5); PHOSPHORUS 2.6 mg/dl (2.5-4.9); POTASSIUM 4.3 mmol/L (3.5-5.1)
--- NOTE | 2016-12-23 07:47 | PN ---
Date/Time of Note Date/Time of Note DATE: 12/23/16 TIME: 07:43 Assessment/Plan VTE Prophylaxis VTE Prophylaxis Intervention: other Lines/Catheters IV C[facility]ter Type (from [facility]): Peripheral IV Urinary Cath still in place: No Assessment/Plan Assessment/Plan 1. UTI is being treated w/o obstructive uropathy, ct scan noted and post void residual<100 cc 2. Electrolyte imbalance addressed, Mag will replaced today. 3. Swallow-Speech evaluation to be done today 4. Advanced neurologic deficit, stable Subjective 24 Hr Interval Summary Respiratory: No cough, No shortness of breath Cardiovascular: chest pain Gastrointestinal: no complaints Exam/Review of Systems Vital Signs Vitals Vital Signs Date Time Temp Pulse Resp B/P Pulse Ox O2 Delivery O2 Flow Rate FiO2 12/23/16 07:41 98.1 91 16 126/77 100 12/19/16 14:43 Room Air Intake and Output 12/22/16 12/22/16 12/23/16 14:59 22:59 06:59 Intake Total 50 ml 515 ml 1210 ml Balance 50 ml 515 ml 1210 ml Exam Neck: No jvd Respiratory: clear to auscultation Cardiovascular: regular rate and rhythm Gastrointestinal: soft Neurological: other (quadrapereisis, nods to questions) Results Result Diagram: 12/23/16 0530 12/23/16 0530 Results 24 hrs Laboratory Tests Test 12/22/16 09:40 12/22/16 13:30 12/22/16 23:14 12/23/16 05:30 White Blood Count 8.1 7.5 Red Blood Count 4.51 4.61 Hemoglobin 13.2 13.6 Hematocrit 39.8 40.4 Mean Corpuscular Volume 88.2 87.6 Mean Corpuscular Hemoglobin 29.3 29.5 Mean Corpuscular Hemoglobin Concent 33.2 33.7 Red Cell Distribution Width 15.0 H 14.8 H Platelet Count 168 171 Mean Platelet Volume 11.1 H 10.9 H Neutrophils % 78.6 H 69.8 Lymphocytes % 14.1 L 21.4 Monocytes % 4.8 5.5 Eosinophils % 2.1 2.5 Basophils % 0.2 0.4 Nucleated Red Blood Cells % 0.0 0.0 Neutrophils # 6.4 5.2 Lymphocytes # 1.1 1.6 Monocytes # 0.4 0.4 Eosinophils # 0.2 0.2 Basophils # 0.0 0.0 Nucleated Red Blood Cells # 0.0 0.0 Sodium Level 140 140 Potassium Level 2.8 *L 4.1 4.3 Chloride Level 115 H 116 H Carbon Dioxide Level 19 L 20 L Anion Gap 9 8 Blood Urea Nitrogen 6 L 4 L Creatinine 0.42 L 0.38 L Glucose Level 122 108 Calcium Level 7.7 L 7.8 L Phosphorus Level 1.2 L 4.2 # 2.6 Magnesium Level 1.8 1.6 L Blood Gas Specimen Source Blood arterial Arterial Blood Date Drawn 12/22/2016 2:01:01 PM Arterial Blood pH (Temp corrected) 7.465 H Arterial Blood pCO2 (Temp correct) 23.7 L Arterial Blood pO2 (Temp corrected) 95.4 Arterial Blood HCO3 16.7 L Arterial Blood Base Excess -5.1 L Arterial Blood Oxygen Saturation 97.7 Octavio Test ACCEPTAB Arterial Blood Gas Puncture Site Left Radial Arterial Blood Carboxyhemoglobin 0.1 Arterial Blood Methemoglobin 0.4 Blood Gas A-a O2 Differential 26.0 H Oxyhemoglobin Percent 97.2 Total Hemoglobin 14.2 Blood Gas Temperature 37.0 Blood Gas Modality ROOM AIR FiO2 21.0 Blood Gas Notified Whom JLD Blood Gas Notified Time 12/22/2016 2:10:38 PM Medications Medications Current Medications Ondansetron HCl (Zofran Inj) 4 mg Q6H PRN IV NAUSEA AND/OR VOMITING; Start 05/27 at 16:30 Acetaminophen (Tylenol Tab) 650 mg Q6H PRN PO PAIN LEVEL 1-3 OR FEVER; Start at 16:30 Docusate Sodium (Colace) 100 mg Q12H PRN PO CONSTIPATION; Start 12/19/16 at 16: 30 Magnesium Hydroxide 30 ml 30 ml DAILY PRN PO CONSTIPATION; Start 12/19/16 at 16 :30 Cefepime HCl (Maxipime 2gm/50 ml (Pmx)) 50 ml @ 100 mls/hr Q8 IVPB Last administered on 12/23/16 05:12; Admin Dose 100 MLS/HR; Start 12/19/16 at 22:00 Heparin Sodium (Porcine) (Heparin (5000 Units/0.5 ml)) 5,000 unit BID SC Last administered on 12/22/16 20:56; Admin Dose 5,000 UNIT; Start 12/19/16 at 21:00 Miscellaneous Information (Pending [facility] Order For Wound Care) This patient martinez... PRN PRN XX WOUND CARE; Start 12/20/16 at 05:00 Sorbitol (Sorbitol 70%) 30 ml BID PRN PO CONSTIPATION; Start 12/20/16 at 10:00 Morphine Sulfate (morphine) 2 mg Q2H PRN IV PAIN; Start 12/20/16 at 12:30 Morphine Sulfate 4 mg 4 mg Q3H PRN IV PAIN LEVEL 7-10 Last administered on 12/20 18:01; Admin Dose 4 MG; Start 12/20/16 at 12:30 Potassium Chloride/Dextrose/ Sod Cl (D5-1/2ns + KCl 40 Meq) 1,000 ml @ 75 mls/ hr [id number] IV Last administered on 12/22/16 14:45; Admin Dose 75 MLS/HR; Start 12/22/16 at 15:00 LAURITA ESPINO MD Dec 23, 2016 07:47
[2016-12-23] MEDS: DEXTROSE 5%-0.45% NACL 1,000 ML IV SCH ×2 (08:05→22:18)
[2016-12-23] MEDS: HEPARIN 5,000 UNIT/0.5 ML VIAL SC SCH ×2 (08:09→20:53)
[2016-12-23] MEDS ORDERED: MAGNESIUM SULFATE 3 GM in SOD CHLORIDE 0.9% 100 ML IVPB ONE (09:00)
[2016-12-23] MEDS ORDERED: BARIUM SULFATE 135 ML (E-Z HD) PO ONE (14:20)
--- NOTE | 2016-12-23 15:45 | RADRPT ---
Vent Rate: 73 bpm RR Interval: 0 msec [place] Interval: 148 msec QRS Duration: 60 msec QT Interval: 382 msec QTC Interval: 420 msec P-R-T [place]: 35 - -27 - 45 degrees Normal sinus rhythm Normal ECG Electronically Signed By: Jose Matos [id number]
--- NOTE | 2016-12-23 18:29 | RADRPT ---
PROCEDURE: Video-fluoroscopy swallowing study. CLINICAL INDICATION: Dysphagia. TECHNIQUE: Fluoroscopic guided video swallowing study was done in conjunction with the speech ther apist. The study was confined to the oral, pharyngeal, and cervical phases of the swallowing mechani sm. 2.1 minutes of fluoroscopy time was used. COMPARISON: No prior study is available for comparison. FINDINGS: Images demonstrate silent aspiration during swallowing. IMPRESSION: 1. Abnormal study with silent aspiration during swallowing. 2. Please refer to the speech therapist's recommendations for future feedings. RPTAT: QQ .Andrei Vail MD, MD Date Time Electronically viewed and signed by .Andrei Vail MD, on 12/23/2016 18:29 .R/
[2016-12-24] VITALS (13 sets, daily range): BP systolic 96–140; BP diastolic 54–99; PULSE 72–92; RESP 15–20
[2016-12-24] MEDS: CEFEPIME 2GM/50 ML (PMX) 50 ML IVPB SCH ×3 (06:00→21:50)
[2016-12-24 07:07] LABS: ADD SCAN DIFF NO
[2016-12-24 07:19] LABS: BASOPHIL # 0.1 10^3/ul (0.0-0.1); BASOPHILS % 0.7 % (0.0-2.0); EOSINOPHILS # 0.2 10^3/ul (0.0-0.5); HEMATOCRIT 42.5 % (37.0-47.0); HEMOGLOBIN 14.2 g/dl (12.0-16.0); LYMPHOCYTES # 1.2 10^3/ul (0.8-2.9); LYMPHOCYTES % 16.2 % (15.0-51.0); MEAN CORPUSCULAR HGB CONC 33.4 g/dl (32.0-37.0); MEAN CORPUSCULAR VOLUME 86.9 fl (82.0-101.0); MEAN PLATELET VOLUME 11.8 fl (7.4-10.4); MONOCYTE # 0.5 10^3/ul (0.3-0.9); MONOCYTES % 6.5 % (0.0-11.0); NEUTROPHIL # 5.6 10^3/ul (1.6-7.5); NEUTROPHILS % 73.7 % (39.0-77.0); RED BLOOD COUNT 4.89 10^6/ul (4.20-5.40); RED CELL DISTRIBUTION WIDTH 14.6 % (11.5-14.5); WHITE BLOOD COUNT 7.6 10^3/ul (4.8-10.8)
[2016-12-24 07:26] LABS: PLATELET COUNT 130 10^3/UL (140-415)
[2016-12-24 08:06] LABS: CALCIUM 8.1 mg/dl (8.4-10.2); CREATININE 0.39 mg/dl (0.44-1.00); MAGNESIUM 2.2 mg/dl (1.7-2.5); PHOSPHORUS 2.2 mg/dl (2.5-4.9); POTASSIUM 3.5 mmol/L (3.5-5.1)
[2016-12-24 08:12] LABS: THYROID STIMULATING HORMONE 3.41 MIU/L (0.465-4.680)
[2016-12-24] MEDS: DEXTROSE 5%-0.45% NACL 1,000 ML IV SCH (09:15)
[2016-12-24] MEDS: HEPARIN 5,000 UNIT/0.5 ML VIAL SC SCH ×2 (09:25→21:56)
--- NOTE | 2016-12-24 13:48 | PN ---
Date/Time of Note Date/Time of Note DATE: 12/24/16 TIME: 13:38 Assessment/Plan VTE Prophylaxis VTE Prophylaxis Intervention: heparin Lines/Catheters IV [facility] Type (from [facility]): Peripheral IV Urinary Cath still in place: No Reason Cath still needed: urinary retention Assessment/Plan Chief Complaint/Hosp Course 1. Multiple sclerosis with cachexia, dysphagia. 2 Dysphagia , patient failed swallowing study. She apparently does not want a gastric feeding tube 3. UTI, on antibiotics 4. Oral thrush, will start Diflucan 5. IV fluids and will adjust IV fluids Problems: Subjective 24 Hr Interval Summary Free Text/Dictation Patient is awake but has limited verbal ability. I asked her if she has pain and she indicated no. Constitutional: poor po, requiring IVF Respiratory: no complaints Cardiovascular: no complaints Genitourinary: no complaints Neurologic: other Exam/Review of Systems Vital Signs Vitals Vital Signs Date Time Temp Pulse Resp B/P Pulse Ox O2 Delivery O2 Flow Rate FiO2 12/24/16 12:24 72 12/24/16 11:41 98.3 18 132/83 96 12/24/16 08:27 Nasal Cannula 2.0 Intake and Output 12/23/16 12/23/16 12/24/16 15:00 23:00 07:00 Intake Total 156 ml 600 ml 950 ml Balance 156 ml 600 ml 950 ml Exam She has white patches on her tongue and mouth consistent with oral thrush. Constitutional: alert, frail Respiratory: clear to auscultation, diminished breath sounds Cardiovascular: regular rate and rhythm Gastrointestinal: soft Musculoskeletal: nl extremities to inspection Results Result Diagram: 12/24/16 0550 12/24/16 0633 Results 24 hrs Laboratory Tests Test 12/24/16 05:50 12/24/16 06:33 12/24/16 06:50 White Blood Count 7.6 Red Blood Count 4.89 Hemoglobin 14.2 Hematocrit 42.5 Mean Corpuscular Volume 86.9 Mean Corpuscular Hemoglobin 29.0 Mean Corpuscular Hemoglobin Concent 33.4 Red Cell Distribution Width 14.6 H Platelet Count 130 #L Mean Platelet Volume 11.8 H Neutrophils % 73.7 Lymphocytes % 16.2 Monocytes % 6.5 Eosinophils % 2.0 Basophils % 0.7 Nucleated Red Blood Cells % 0.0 Neutrophils # 5.6 Lymphocytes # 1.2 Monocytes # 0.5 Eosinophils # 0.2 Basophils # 0.1 Nucleated Red Blood Cells # 0.0 Sodium Level 142 Potassium Level 3.5 Chloride Level 114 H Carbon Dioxide Level 21 Anion Gap 11 Blood Urea Nitrogen 3 L Creatinine 0.39 L Glucose Level 88 Calcium Level 8.1 L Phosphorus Level 2.2 L Magnesium Level 2.2 Vitamin B12 Level 613 Thyroid Stimulating Hormone (TSH) 3.410 Medications Medications Current Medications Ondansetron HCl (Zofran Inj) 4 mg Q6H PRN IV NAUSEA AND/OR VOMITING; Start 05/27 at 16:30 Acetaminophen (Tylenol Tab) 650 mg Q6H PRN PO PAIN LEVEL 1-3 OR FEVER; Start at 16:30 Docusate Sodium (Colace) 100 mg Q12H PRN PO CONSTIPATION; Start 12/19/16 at 16: 30 Magnesium Hydroxide 30 ml 30 ml DAILY PRN PO CONSTIPATION; Start 12/19/16 at 16 :30 Cefepime HCl (Maxipime 2gm/50 ml (Pmx)) 50 ml @ 100 mls/hr Q8 IVPB Last administered on 12/24/16 06:00; Admin Dose 100 MLS/HR; Start 12/19/16 at 22:00 Heparin Sodium (Porcine) (Heparin (5000 Units/0.5 ml)) 5,000 unit BID SC Last administered on 12/24/16 09:25; Admin Dose 5,000 UNIT; Start 12/19/16 at 21:00 Miscellaneous Information (Pending [facility] Order For Wound Care) This patient martinez... PRN PRN XX WOUND CARE; Start 12/20/16 at 05:00 Sorbitol (Sorbitol 70%) 30 ml BID PRN PO CONSTIPATION; Start 12/20/16 at 10:00 Morphine Sulfate (morphine) 2 mg Q2H PRN IV PAIN; Start 12/20/16 at 12:30 Morphine Sulfate 4 mg 4 mg Q3H PRN IV PAIN LEVEL 7-10 Last administered on 12/20 18:01; Admin Dose 4 MG; Start 12/20/16 at 12:30 Potassium Chloride/ Potassium Phosphate/ Multivitamins/ Dextrose/Sodium Chloride (KCl/K Phos (Meq)/Infuvite/ D5-1/2ns) 1,012.2727 ml @ 70 mls/hr [id number] IV ; Start 12/24/16 at 15:00 JAMIR MCKEON MD Dec 24, 2016 13:48
[2016-12-24] MEDS: FLUCONAZOLE 100 MG/NS (PMX) 50 ML IVPB SCH (16:22)
[2016-12-24] MEDS: MULTIVITAMINS IV SCH (23:38)
[2016-12-24] MEDS: [UNRECOGNIZED DRUG - OTHER] IV SCH (23:38)
[2016-12-24] MEDS: POTASSIUM PHOSPHATE IV SCH (23:38)
[2016-12-24] MEDS: POTASSIUM CHLORIDE IV SCH (23:38)
[2016-12-25] VITALS (10 sets, daily range): BP systolic 111–139; BP diastolic 70–97; PULSE 67–78; RESP 16–18
[2016-12-25] MEDS: CEFEPIME 2GM/50 ML (PMX) 50 ML IVPB SCH ×3 (05:55→21:08)
[2016-12-25 06:27] LABS: ADD SCAN DIFF NO
[2016-12-25 06:34] LABS: BASOPHIL # 0.1 10^3/ul (0.0-0.1); BASOPHILS % 1.2 % (0.0-2.0); EOSINOPHILS # 0.2 10^3/ul (0.0-0.5); HEMATOCRIT 43.6 % (37.0-47.0); HEMOGLOBIN 14.5 g/dl (12.0-16.0); LYMPHOCYTES # 2.1 10^3/ul (0.8-2.9); LYMPHOCYTES % 28.7 % (15.0-51.0); MEAN CORPUSCULAR HEMOGLOBIN 29.4 pg (29.0-33.0); MEAN CORPUSCULAR HGB CONC 33.3 g/dl (32.0-37.0); MEAN CORPUSCULAR VOLUME 88.3 fl (82.0-101.0); MEAN PLATELET VOLUME 10.2 fl (7.4-10.4); MONOCYTE # 0.6 10^3/ul (0.3-0.9); NEUTROPHIL # 4.1 10^3/ul (1.6-7.5); NEUTROPHILS % 56.8 % (39.0-77.0); PLATELET COUNT 232 10^3/UL (140-415); RED BLOOD COUNT 4.94 10^6/ul (4.20-5.40); RED CELL DISTRIBUTION WIDTH 14.6 % (11.5-14.5); WHITE BLOOD COUNT 7.3 10^3/ul (4.8-10.8)
[2016-12-25] MEDS: POTASSIUM PHOSPHATE IV SCH ×2 (07:04→15:23)
[2016-12-25] MEDS: MULTIVITAMINS IV SCH ×2 (07:04→15:23)
[2016-12-25] MEDS: POTASSIUM CHLORIDE IV SCH ×2 (07:04→15:23)
[2016-12-25] MEDS: [UNRECOGNIZED DRUG - OTHER] IV SCH ×2 (07:04→15:23)
[2016-12-25 07:24] LABS: ALBUMIN/GLOBULIN RATIO 1.15; BILIRUBIN,INDIRECT 0.4 mg/dl (0-1.1); BILIRUBIN,TOTAL 0.4 mg/dl (0.2-1.3); CALCIUM 8.5 mg/dl (8.4-10.2); CREATININE 0.42 mg/dl (0.44-1.00); PHOSPHORUS 3.3 mg/dl (2.5-4.9); POTASSIUM 3.8 mmol/L (3.5-5.1); TOTAL PROTEIN 5.6 g/dl (6.1-8.1)
[2016-12-25] MEDS: HEPARIN 5,000 UNIT/0.5 ML VIAL SC SCH ×2 (10:26→21:21)
--- NOTE | 2016-12-25 15:24 | PN ---
Date/Time of Note Date/Time of Note DATE: 12/25/16 TIME: 15:22 Assessment/Plan VTE Prophylaxis VTE Prophylaxis Intervention: heparin Lines/Catheters IV C[facility] Type ([facility] Peripheral IV Urinary Cath still in place: No Assessment/Plan Assessment/Plan 1. Multiple sclerosis with cachexia, dysphagia. 2 Dysphagia , patient failed swallowing study. She apparently does not want a gastric feeding tube 3. UTI, on antibiotics 4. Oral thrush, on Diflucan 5. IV fluids and will adjust IV fluids. Labs reviewed Subjective 24 Hr Interval Summary Free Text/Dictation The patient is awake, she is non-verbal. Denies pain or discomfort. Appears in no distress. Exam/Review of Systems Vital Signs Vitals Vital Signs Date Time Temp Pulse Resp B/P Pulse Ox O2 Delivery O2 Flow Rate FiO2 12/25/16 12:04 74 12/25/16 11:10 98.1 18 119/86 95 12/24/16 08:27 Nasal Cannula 2.0 Intake and Output 12/24/16 12/24/16 12/25/16 15:00 23:00 07:00 Intake Total 1050 ml 900 ml Balance 1050 ml 900 ml Exam Constitutional: alert Neck: No jvd Respiratory: clear to auscultation Cardiovascular: regular rate and rhythm Gastrointestinal: soft Extremities: No edema Results Result Diagram: 12/25/16 0545 12/25/16 0545 Results 24 hrs Laboratory Tests Test 12/25/16 05:45 White Blood Count 7.3 Red Blood Count 4.94 Hemoglobin 14.5 Hematocrit 43.6 Mean Corpuscular Volume 88.3 Mean Corpuscular Hemoglobin 29.4 Mean Corpuscular Hemoglobin Concent 33.3 Red Cell Distribution Width 14.6 H Platelet Count 232 # Mean Platelet Volume 10.2 Neutrophils % 56.8 Lymphocytes % 28.7 Monocytes % 8.0 Eosinophils % 3.0 Basophils % 1.2 Nucleated Red Blood Cells % 0.0 Neutrophils # 4.1 Lymphocytes # 2.1 Monocytes # 0.6 Eosinophils # 0.2 Basophils # 0.1 Nucleated Red Blood Cells # 0.0 Sodium Level 144 Potassium Level 3.8 Chloride Level 113 H Carbon Dioxide Level 23 Anion Gap 12 Blood Urea Nitrogen 4 L Creatinine 0.42 L Glucose Level 92 Calcium Level 8.5 Phosphorus Level 3.3 Total Bilirubin 0.4 Direct Bilirubin 0.00 Indirect Bilirubin 0.4 Aspartate Amino Transf (AST/SGOT) 82 H Alanine Aminotransferase (ALT/SGPT) 56 Alkaline Phosphatase 56 Total Protein 5.6 L Albumin 3.0 L Globulin 2.60 Albumin/Globulin Ratio 1.15 Medications Medications Current Medications Ondansetron HCl (Zofran Inj) 4 mg Q6H PRN IV NAUSEA AND/OR VOMITING; Start 05/27 at 16:30 Acetaminophen (Tylenol Tab) 650 mg Q6H PRN PO PAIN LEVEL 1-3 OR FEVER; Start at 16:30 Docusate Sodium (Colace) 100 mg Q12H PRN PO CONSTIPATION; Start 12/19/16 at 16: 30 Magnesium Hydroxide 30 ml 30 ml DAILY PRN PO CONSTIPATION; Start 12/19/16 at 16 :30 Cefepime HCl (Maxipime 2gm/50 ml (Pmx)) 50 ml @ 100 mls/hr Q8 IVPB Last administered on 12/25/16 05:55; Admin Dose 100 MLS/HR; Start 12/19/16 at 22:00 Heparin Sodium (Porcine) (Heparin (5000 Units/0.5 ml)) 5,000 unit BID SC Last administered on 12/25/16 10:26; Admin Dose 5,000 UNIT; Start 12/19/16 at 21:00 Miscellaneous Information ([facility]) This patient martinez... PRN PRN XX WOUND CARE; Start 12/20/16 at 05:00 Sorbitol (Sorbitol 70%) 30 ml BID PRN PO CONSTIPATION; Start 12/20/16 at 10:00 Morphine Sulfate (morphine) 2 mg Q2H PRN IV PAIN; Start 12/20/16 at 12:30 Morphine Sulfate 4 mg 4 mg Q3H PRN IV PAIN LEVEL 7-10 Last administered on 12/20 18:01; Admin Dose 4 MG; Start 12/20/16 at 12:30 Potassium Chloride 10 meq/ Potassium Phosphate 10 meq/ Multivitamins 5 ml/ Dextrose/ Sodium Chloride 1,012.2727 ml @ 70 mls/hr [id number] IV Last administered on 12/25/16 07:04; Admin Dose 70 MLS/HR; Start 12/24/16 at 15:00 Fluconazole/ Sodium Chloride (Diflucan 100 Mg/ NS (Pmx)) 50 ml @ 50 mls/hr Q24H IVPB Last administered on 12/24/16t 16:22; Admin Dose 50 MLS/HR; Start at 16:00 LIS COATES MD Dec 25, 2016 15:24
[2016-12-25] MEDS: FLUCONAZOLE 100 MG/NS (PMX) 50 ML IVPB SCH (17:23)
[2016-12-26] VITALS (11 sets, daily range): BP systolic 104–145; BP diastolic 72–100; PULSE 68–93; RESP 15–20
[2016-12-26] MEDS: CEFEPIME 2GM/50 ML (PMX) 50 ML IVPB SCH ×3 (05:51→23:11)
[2016-12-26] MEDS: MULTIVITAMINS IV SCH (10:22)
[2016-12-26] MEDS: POTASSIUM PHOSPHATE IV SCH (10:22)
[2016-12-26] MEDS: [UNRECOGNIZED DRUG - OTHER] IV SCH (10:22)
[2016-12-26] MEDS: POTASSIUM CHLORIDE IV SCH (10:22)
[2016-12-26] MEDS: HEPARIN 5,000 UNIT/0.5 ML VIAL SC SCH ×2 (10:27→23:12)
--- NOTE | 2016-12-26 11:20 | PN ---
Date/Time of Note Date/Time of Note DATE: 12/26/16 TIME: 11:16 Assessment/Plan VTE Prophylaxis VTE Prophylaxis Intervention: heparin Lines/Catheters IV Catheter Type (from [facility]): Peripheral IV Urinary Cath still in place: No Assessment/Plan Chief Complaint/Hosp Course 1. Multiple sclerosis with cachexia, dysphagia. 2 Dysphagia , patient failed swallowing study. She apparently does not want a gastric feeding tube in the past. Family to discuss again today. 3. UTI, on antibiotics 4. Oral thrush, on Diflucan 5. IV fluids and will adjust IV fluids. Problems: Subjective 24 Hr Interval Summary Free Text/Dictation The patient is alert, non-verbal. she seems to answer questions appropriately. Nursing reports that her sister visited yesterday and discussed a feeding tube with the patient. I discussed with her as well. The family will be back today and hopefully a decision will be made. Exam/Review of Systems Vital Signs Vitals Vital Signs Date Time Temp Pulse Resp B/P Pulse Ox O2 Delivery O2 Flow Rate FiO2 12/26/16 08:12 80 12/26/16 07:41 98.1 18 138/76 97 12/24/16 08:27 Nasal Cannula 2.0 Intake and Output 12/25/16 12/25/16 12/26/16 15:00 23:00 07:00 Intake Total 1162.2727 ml 50 ml Balance 1162.2727 ml 50 ml Exam Head: normocephalic Neck: No jvd Respiratory: clear to auscultation Cardiovascular: regular rate and rhythm Extremities: No edema Results Result Diagram: 12/25/16 0545 12/25/16 0545 Medications Medications Current Medications Ondansetron HCl (Zofran Inj) 4 mg Q6H PRN IV NAUSEA AND/OR VOMITING; Start 05/27 at 16:30 Acetaminophen (Tylenol Tab) 650 mg Q6H PRN PO PAIN LEVEL 1-3 OR FEVER; Start at 16:30 Docusate Sodium (Colace) 100 mg Q12H PRN PO CONSTIPATION; Start 12/19/16 at 16: 30 Magnesium Hydroxide 30 ml 30 ml DAILY PRN PO CONSTIPATION; Start 12/19/16 at 16 :30 Cefepime HCl (Maxipime 2gm/50 ml (Pmx)) 50 ml @ 100 mls/hr Q8 IVPB Last administered on 12/26/16 05:51; Admin Dose 100 MLS/HR; Start 12/19/16 at 22:00 Heparin Sodium (Porcine) (Heparin (5000 Units/0.5 ml)) 5,000 unit BID SC Last administered on 12/26/16 10:27; Admin Dose 5,000 UNIT; Start 12/19/16 at 21:00 Miscellaneous Information (Pending [facility] Order For Wound Care) This patient martinez... PRN PRN XX WOUND CARE; Start 12/20/16 at 05:00 Sorbitol (Sorbitol 70%) 30 ml BID PRN PO CONSTIPATION; Start 12/20/16 at 10:00 Morphine Sulfate (morphine) 2 mg Q2H PRN IV PAIN; Start 12/20/16 at 12:30 Morphine Sulfate 4 mg 4 mg Q3H PRN IV PAIN LEVEL 7-10 Last administered on 12/20 18:01; Admin Dose 4 MG; Start 12/20/16 at 12:30 Potassium Chloride 10 meq/ Potassium Phosphate 10 meq/ Multivitamins 5 ml/ Dextrose/ Sodium Chloride 1,012.2727 ml @ 70 mls/hr [id number] IV Last administered on 12/26/16 10:22; Admin Dose 70 MLS/HR; Start 12/24/16 at 15:00 Fluconazole/ Sodium Chloride (Diflucan 100 Mg/ NS (Pmx)) 50 ml @ 50 mls/hr Q24H IVPB Last administered on 12/25/16 17:23; Admin Dose 50 MLS/HR; Start at 16:00 LIS COATES MD Dec 26, 2016 11:20
[2016-12-26] MEDS: FLUCONAZOLE 100 MG/NS (PMX) 50 ML IVPB SCH (17:29)
[2016-12-27] VITALS (8 sets, daily range): BP systolic 118–130; BP diastolic 57–90; PULSE 77–88; RESP 15–18
[2016-12-27] MEDS: POTASSIUM PHOSPHATE IV SCH (04:24)
[2016-12-27] MEDS: MULTIVITAMINS IV SCH (04:24)
[2016-12-27] MEDS: [UNRECOGNIZED DRUG - OTHER] IV SCH (04:24)
[2016-12-27] MEDS: POTASSIUM CHLORIDE IV SCH (04:24)
[2016-12-27] MEDS: CEFEPIME 2GM/50 ML (PMX) 50 ML IVPB SCH ×3 (06:30→23:35)
--- NOTE | 2016-12-27 07:59 | CONS ---
Date/Time of Note Date/Time of Note DATE: 12/27/16 TIME: 07:58 Assessment/Plan Assessment/Plan Problems: (1) Nutrition disorder Comment: await decision...PEG/Ft vs home w puree diet (2) Multiple sclerosis Comment: progressive (3) Urinary tract infection Status: Acute Comment: Rx w abx w response Qualifiers: Urinary tract infection type: acute cystitis Hematuria presence: without hematuria Qualified Code: N30.00 - Acute cystitis without hematuria Consultation Date/Type/Reason Admit Date/Time Dec 19, 2016 at 14:55 Type of Consultation: neph 24 HR Interval Summary Free Text/Dictation stable Exam/Review of Systems Vital Signs Vitals Vital Signs Date Time Temp Pulse Resp B/P Pulse Ox O2 Delivery O2 Flow Rate FiO2 12/27/16 04:00 97.8 71 15 118/57 94 12/26/16 20:00 Nasal Cannula 2.0 Intake and Output 12/26/16 12/26/16 12/27/16 15:00 23:00 07:00 Intake Total 870 ml Balance 870 ml Exam Constitutional: alert Psych: no complaints Neck: supple Respiratory: clear to auscultation Cardiovascular: regular rate and rhythm Gastrointestinal: nl liver, spleen, soft Results Result Diagram: 12/25/16 0545 12/25/16 0545 Medications Medications Current Medications Ondansetron HCl (Zofran Inj) 4 mg Q6H PRN IV NAUSEA AND/OR VOMITING; Start 05/27 at 16:30 Acetaminophen (Tylenol Tab) 650 mg Q6H PRN PO PAIN LEVEL 1-3 OR FEVER; Start at 16:30 Docusate Sodium (Colace) 100 mg Q12H PRN PO CONSTIPATION; Start 12/19/16 at 16: 30 Magnesium Hydroxide 30 ml 30 ml DAILY PRN PO CONSTIPATION; Start 12/19/16 at 16 :30 Cefepime HCl (Maxipime 2gm/50 ml (Pmx)) 50 ml @ 100 mls/hr Q8 IVPB Last administered on 12/27/16 06:30; Admin Dose 100 MLS/HR; Start 12/19/16 at 22:00 Heparin Sodium (Porcine) (Heparin (5000 Units/0.5 ml)) 5,000 unit BID SC Last administered on 12/26/16 23:12; Admin Dose 5,000 UNIT; Start 12/19/16 at 21:00 Misc[facility] This patient martinez... PRN PRN XX WOUND CARE; Start 12/20/16 at 05:00 Sorbitol (Sorbitol 70%) 30 ml BID PRN PO CONSTIPATION; Start 12/20/16 at 10:00 Morphine Sulfate (morphine) 2 mg Q2H PRN IV PAIN; Start 12/20/16 at 12:30 Morphine Sulfate 4 mg 4 mg Q3H PRN IV PAIN LEVEL 7-10 Last administered on 12/20 18:01; Admin Dose 4 MG; Start 12/20/16 at 12:30 Potassium Chloride 10 meq/ Potassium Phosphate 10 meq/ Multivitamins 5 ml/ Dextrose/ Sodium Chloride 1,012.2727 ml @ 70 mls/hr [id number] IV Last administered on 12/27/16 04:24; Admin Dose 70 MLS/HR; Start 12/24/16 at 15:00 Fluconazole/ Sodium Chloride (Diflucan 100 Mg/ NS (Pmx)) 50 ml @ 50 mls/hr Q24H IVPB Last administered on 12/26/16 17:29; Admin Dose 50 MLS/HR; Start at 16:00 SOPHIA MONROE MD Dec 27, 2016 07:59
[2016-12-27 09:34] LABS: ADD SCAN DIFF NO
[2016-12-27 09:41] LABS: BASOPHIL # 0.1 10^3/ul (0.0-0.1); BASOPHILS % 1.1 % (0.0-2.0); EOSINOPHILS # 0.2 10^3/ul (0.0-0.5); EOSINOPHILS % 2.1 % (0.0-7.0); HEMATOCRIT 44.3 % (37.0-47.0); HEMOGLOBIN 14.8 g/dl (12.0-16.0); LYMPHOCYTES # 1.8 10^3/ul (0.8-2.9); LYMPHOCYTES % 24.7 % (15.0-51.0); MEAN CORPUSCULAR HEMOGLOBIN 29.5 pg (29.0-33.0); MEAN CORPUSCULAR HGB CONC 33.4 g/dl (32.0-37.0); MEAN CORPUSCULAR VOLUME 88.4 fl (82.0-101.0); MEAN PLATELET VOLUME 11.1 fl (7.4-10.4); MONOCYTE # 0.4 10^3/ul (0.3-0.9); MONOCYTES % 5.9 % (0.0-11.0); NEUTROPHIL # 4.5 10^3/ul (1.6-7.5); NEUTROPHILS % 62.5 % (39.0-77.0); PLATELET COUNT 302 10^3/UL (140-415); RED BLOOD COUNT 5.01 10^6/ul (4.20-5.40); RED CELL DISTRIBUTION WIDTH 14.9 % (11.5-14.5); WHITE BLOOD COUNT 7.2 10^3/ul (4.8-10.8)
[2016-12-27 09:56] LABS: INR 0.99; PROTIME 13.1 Sec (12.2-14.2)
[2016-12-27 10:00] LABS: ALBUMIN 3.2 g/dl (3.3-4.9); ALBUMIN/GLOBULIN RATIO 1.28; BILIRUBIN,INDIRECT 0.4 mg/dl (0-1.1); BILIRUBIN,TOTAL 0.4 mg/dl (0.2-1.3); CALCIUM 8.2 mg/dl (8.4-10.2); CREATININE 0.44 mg/dl (0.44-1.00); POTASSIUM 5.6 mmol/L (3.5-5.1); TOTAL PROTEIN 5.7 g/dl (6.1-8.1)
[2016-12-27] MEDS: HEPARIN 5,000 UNIT/0.5 ML VIAL SC SCH ×2 (10:25→22:29)
[2016-12-27] MEDS ORDERED: FUROSEMIDE 20 MG INJ IV ONE (11:00)
--- NOTE | 2016-12-27 14:23 | CONS ---
DATE OF ADMISSION: 12/19/2016 DATE OF CONSULTATION: GASTROINTESTINAL CONSULTATION Dear Dr. Monroe, Thank you for asking me to see Ms. Sandra Lopez in GI consultation. HISTORY OF PRESENT ILLNESS: The patient is a 46-year-old white female admitted to the hospital jeff use of sepsis, urinary tract infection, and mouth infection. She is on multiple antibiotics. At th is time, GI consultation is requested because of the fact that she is not able to take any feeding b y mouth. She apparently has lost weight. She has no nausea, no vomiting, no GI bleeding, no fever, no diarrhea. She is known to have a severe degree of multiple sclerosis, which is progressive. MEDICATIONS: Prior to the admission include 1. Zofran. 2. Colace. 3. Magnesium. 4. Cefepime. 5. Metronidazole. 6. Vancomycin. 7. Heparin. No other active medical problem at this time. PHYSICAL EXAMINATION: GENERAL: The patient is a 46-year-old white female who, at this time, is alert, but she is not verb al at this time. VITAL SIGNS: Blood pressure is 130/90, temperature 96.8, pulse is 82. CARDIOVASCULAR: Normal heart sounds. RESPIRATORY: Normal breath sounds. ABDOMEN: Shows soft abdomen with no palpable masses, no tenderness, no distention. LABORATORY WORKUP: WBC count is 7200, hemoglobin 14.8, platelet count 302,000. The potassium is 5. 6 after apparently she received Lasix subsequently. Calcium is 8.2, AST 126, ALT 109, alkaline phos phatase is 51. CLINICAL IMPRESSION: The patient presenting with history of difficulty swallowing and weight loss. Percutaneous endoscopic gastrostomy tube placement has been requested. She has multiple sclerosis. She also has borderline liver function elevation noted. Rule out drug-induced liver disease. Cur rently, she is some medications, which I mentioned. She is also on fluconazole at this time. PLAN: Recommend proceeding with a percutaneous endoscopic gastrostomy tube placement. I also recom mend ultrasound of the upper abdomen. Once again, doctor, thank you for this consultation. Dictated By: CHINO ALFONSO/NTS Conf#: [id number] DID#: [id number] CC: SOPHIA MONROE MD;*EndCC*
--- NOTE | 2016-12-27 16:27 | RADRPT ---
PROCEDURE: MR Abdomen and MRCP CLINICAL INDICATION: Concern for choledocholithiasis. Sepsis. TECHNIQUE: MRI abdomen and MRCP without contrast was performed on the a high-resolution, high Tesl a field strength scanner. Patient was examined without IV contrast. Images were reviewed on a high- resolution PACS workstation. COMPARISON: Correlation with CT from 12/19/2016 FINDINGS: MRI Abdomen: There is a 7.0 x 6.6 x 9.3 cm T2 hyperintense mass within the posterior right hepatic lobe consisten t with hemangioma as seen on prior CT. Otherwise, the liver is normal in size and homogeneous in si gnal intensity. There is normal signal intensity within the liver. No liver mass lesion or intrahe patic biliary dilatation is seen. The spleen is normal in size and homogeneous in signal intensity. The stomach is partially collapsed but grossly unremarkable. No pancreatic lesion is seen. The ad renal glands and kidneys are symmetrically normal. The aorta is of normal caliber. There is no ret roperitoneal lymphadenopathy. The visualized portion of the small bowel and mesentery, as visualize d, are all unremarkable. The rectum is noted to be largely distended with fecal material, measuring up to 8.8 cm in diameter. There is a trace right pleural effusion. MRCP: Multiple stones are present within the gallbladder measuring up to 2.2 cm in the gallbladder fundus and 2.1 cm in the gallbladder neck. There is mild gallbladder wall edema. No pericholecystic fat stranding or fluid is seen. The biliary tree is not dilated. No intrahepatic nor extrahepatic bili lalo dilatation is present. The pancreatic duct is not dilated. IMPRESSION: 1. Cholelithiasis with mild gallbladder wall edema but no additional evidence of acute cholecystit is. There is no evidence of choledocholithiasis or biliary obstruction . 2. Large right hepatic lobe hemangioma. 3. Largely distended rectum. Correlate with constipation. 4. Trace right pleural effusion. RPTAT: JJ .Scott Nicholson MD, Date Time Electronically viewed and signed by .Scott Nicholson MD, MD on 12/27/2016 16:26 .A/
[2016-12-27] MEDS ORDERED: D5W-0.45 NACL + KCL 20 MEQ 1,000 ML IV SCH (23:00)
[2016-12-27] MEDS: D5W-0.45 NACL + KCL 20 MEQ 1,000 ML IV SCH (23:08)
[2016-12-28] VITALS (10 sets, daily range): BP systolic 117–134; BP diastolic 72–93; PULSE 76–95; RESP 14–24
[2016-12-28] MEDS: CEFEPIME 2GM/50 ML (PMX) 50 ML IVPB SCH (06:29)
--- NOTE | 2016-12-28 07:51 | CONS ---
Date/Time of Note Date/Time of Note DATE: 12/28/16 TIME: 07:48 Assessment/Plan Assessment/Plan Problems: (1) Elevated liver enzymes Comment: prob due to fluconazole, since d/c'd... s/p MRCP yest w no biliary duct dilatation... (+) gallstones, tho,,,will recheck in am (2) Vitamin D deficiency Comment: replete once PEG in place (3) Urinary tract infection Status: Acute Comment: on IV abx, prob resolved Qualifiers: Urinary tract infection type: acute cystitis Hematuria presence: without hematuria Qualified Code: N30.00 - Acute cystitis without hematuria (4) Nutrition disorder Comment: for planned PEG w Dr Valverde, ?today? Consultation Date/Type/Reason Admit Date/Time Dec 19, 2016 at 14:55 Type of Consultation: neph 24 HR Interval Summary Free Text/Dictation no distress Subjective hx not possible: pt non-verbal Exam/Review of Systems Vital Signs Vitals Vital Signs Date Time Temp Pulse Resp B/P Pulse Ox O2 Delivery O2 Flow Rate FiO2 12/27/16 20:36 97.4 90 16 127/89 96 12/27/16 12:40 Room Air 12/26/16 20:00 2.0 Intake and Output 12/27/16 12/27/16 12/28/16 15:00 23:00 07:00 Intake Total 50 ml 50 ml Balance 50 ml 50 ml Exam Constitutional: alert, non-verbal Neck: supple Respiratory: clear to auscultation Cardiovascular: regular rate and rhythm Gastrointestinal: nl liver, spleen, non-tender, soft Extremities: normal pulses Results Result Diagram: 12/27/1691912/27/162044 Results 24 hrs Laboratory Tests Test 12/27/16 09:20 12/27/16 20:45 White Blood Count 7.2 Red Blood Count 5.01 Hemoglobin 14.8 Hematocrit 44.3 Mean Corpuscular Volume 88.4 Mean Corpuscular Hemoglobin 29.5 Mean Corpuscular Hemoglobin Concent 33.4 Red Cell Distribution Width 14.9 H Platelet Count 302 # Mean Platelet Volume 11.1 H Neutrophils % 62.5 Lymphocytes % 24.7 Monocytes % 5.9 Eosinophils % 2.1 Basophils % 1.1 Nucleated Red Blood Cells % 0.0 Neutrophils # 4.5 Lymphocytes # 1.8 Monocytes # 0.4 Eosinophils # 0.2 Basophils # 0.1 Nucleated Red Blood Cells # 0.0 Prothrombin Time 13.1 Prothrombin Time Ratio 1.0 INR International Normalized Ratio 0.99 Sodium Level 134 L Potassium Level 5.6 H 3.7 Chloride Level 108 Carbon Dioxide Level 22 Anion Gap 10 Blood Urea Nitrogen 5 L Creatinine 0.44 Glucose Level 204 Calcium Level 8.2 L Total Bilirubin 0.4 Direct Bilirubin 0.00 Indirect Bilirubin 0.4 Aspartate Amino Transf (AST/SGOT) 126 H Alanine Aminotransferase (ALT/SGPT) 109 H Alkaline Phosphatase 51 Total Protein 5.7 L Albumin 3.2 L Globulin 2.50 Albumin/Globulin Ratio 1.28 Medications Medications Current Medications Ondansetron HCl (Zofran Inj) 4 mg Q6H PRN IV NAUSEA AND/OR VOMITING; Start 05/27 at 16:30 Acetaminophen (Tylenol Tab) 650 mg Q6H PRN PO PAIN LEVEL 1-3 OR FEVER; Start at 16:30 Docusate Sodium (Colace) 100 mg Q12H PRN PO CONSTIPATION; Start 12/19/16 at 16: 30 Magnesium Hydroxide 30 ml 30 ml DAILY PRN PO CONSTIPATION; Start 12/19/16 at 16 :30 Cefepime HCl (Maxipime 2gm/50 ml (Pmx)) 50 ml @ 100 mls/hr Q8 IVPB Last administered on 12/28/16 06:29; Admin Dose 100 MLS/HR; Start 12/19/16 at 22:00 Heparin Sodium (Porcine) (Heparin (5000 Units/0.5 ml)) 5,000 unit BID SC Last administered on 12/27/16 22:29; Admin Dose 5,000 UNIT; Start 12/19/16 at 21:00 Miscellaneous Information (Pending Santyl Order For Wound Care) This patient martinez... PRN PRN XX WOUND CARE; Start 12/20/16 at 05:00 Sorbitol (Sorbitol 70%) 30 ml BID PRN PO CONSTIPATION; Start 12/20/16 at 10:00 Morphine Sulfate (morphine) 2 mg Q2H PRN IV PAIN; Start 12/20/16 at 12:30 Morphine Sulfate 4 mg 4 mg Q3H PRN IV PAIN LEVEL 7-10 Last administered on 12/20 18:01; Admin Dose 4 MG; Start 12/20/16 at 12:30 Potassium Chloride/Dextrose/ Sod Cl (D5-1/2ns + KCl 20 Meq) 1,000 ml @ 50 mls/ hr Q20H IV Last administered on 12/27/16t 23:08; Admin Dose 50 MLS/HR; Start at 23:00 SOPHIA MONROE MD Dec 28, 2016 07:51
[2016-12-28 08:59] LABS: ALBUMIN 3.5 g/dl (3.3-4.9); ALBUMIN/GLOBULIN RATIO 1.25; BILIRUBIN,INDIRECT 0.3 mg/dl (0-1.1); BILIRUBIN,TOTAL 0.3 mg/dl (0.2-1.3); CREATININE 0.5 mg/dl (0.44-1.00); POTASSIUM 4.3 mmol/L (3.5-5.1); TOTAL PROTEIN 6.3 g/dl (6.1-8.1)
[2016-12-28] MEDS: HEPARIN 5,000 UNIT/0.5 ML VIAL SC SCH ×2 (09:00→20:45)
[2016-12-28] MEDS ORDERED: ONDANSETRON 4 MG INJ IV PRN (12:00)
[2016-12-28] MEDS ORDERED: METOCLOPRAMIDE 10 MG INJ IV PRN (12:00)
[2016-12-28] MEDS ORDERED: LIDOCAINE 100 MG SYRINGE ONE (12:04)
[2016-12-28] MEDS ORDERED: PROPOFOL 20 ML ONE (12:04)
[2016-12-28] MEDS ORDERED: FENTAnyl 50 MCG/ML VIAL ONE (12:04)
[2016-12-28] MEDS ORDERED: CEFAZOLIN 2 GM/50 ML (PMX) 50 ML IVPB ONE (12:13)
--- NOTE | 2016-12-28 13:47 | GILP ---
DATE OF PROCEDURE: 12/28/2016 PROCEDURE: Esophagogastroduodenoscopy, percutaneous endoscopic gastrostomy tube placement PREOPERATIVE DIAGNOSIS: Patient presenting with history of difficulty in swallowing patient losing weight. At this time, procedure is performed to create access for long-term nutritional support. POSTOPERATIVE DIAGNOSIS: Patient presenting with history of difficulty in swallowing patient losing weight. At this time, procedure is performed to create access for long-term nutritional support. DESCRIPTION OF PROCEDURE: After informed written consent was obtained, the patient was asked to lie in the supine position. Intravenous anesthesia was given by Elizabeth BARROSO. When the patient became somnolent, the Olympus video upper endoscope was introduced into the orophar ynx, then into the esophagus. Esophagus appeared normal. Stomach appeared normal. Duodenum appear ed normal except a minimal duodenitis. Scope at this time was withdrawn to the stomach. The anteri or abdominal wall was prepared with Betadine and alcohol, and 2% Xylocaine was infiltrated at the en doscopic illuminating site and at this time 2 mL of 2% Xylocaine was infiltrated. A 5 mm incision w as made with the help of a scalpel. Through this incision, trocar was inserted into the stomach and the guidewire was inserted into the stomach through the trocar after removing the stylet. The guid ewire was grabbed with a polypectomy snare and then this was brought out through the mouth along wit h the endoscope. To this end of the guidewire, #20 Microvasive G-tube was tied in a loop fashion an d then it was brought out through the abdominal wall incision. At this time, the retention bumper w as placed over the G-tube close to the skin. Tapered end of the gastrostomy tube was cut, the adapt er was placed and the procedure was terminated. PLAN: Recommend starting G-tube feeding in a.m. Dictated By: CHINO DUNCAN MD [place]/NTS Conf#: [id number] DID#: [id number] CC: CHINO DUNCAN MD; SOPHIA MONROE MD;*EndCC*
[2016-12-28] MEDS: D5W-0.45 NACL + KCL 20 MEQ 1,000 ML IV SCH (19:00)
[2016-12-29] MEDS: D5W-0.45 NACL + KCL 20 MEQ 1,000 ML IV SCH ×2 (00:37→20:55)
[2016-12-29 06:19] LABS: ADD SCAN DIFF NO
[2016-12-29 06:27] LABS: BASOPHIL # 0.1 10^3/ul (0.0-0.1); BASOPHILS % 0.9 % (0.0-2.0); EOSINOPHILS # 0.2 10^3/ul (0.0-0.5); EOSINOPHILS % 2.1 % (0.0-7.0); HEMOGLOBIN 16.4 g/dl (12.0-16.0); LYMPHOCYTES # 2.2 10^3/ul (0.8-2.9); LYMPHOCYTES % 27.2 % (15.0-51.0); MEAN CORPUSCULAR HEMOGLOBIN 29.7 pg (29.0-33.0); MEAN CORPUSCULAR HGB CONC 32.8 g/dl (32.0-37.0); MEAN CORPUSCULAR VOLUME 90.6 fl (82.0-101.0); MEAN PLATELET VOLUME 11.2 fl (7.4-10.4); MONOCYTE # 0.5 10^3/ul (0.3-0.9); MONOCYTES % 5.7 % (0.0-11.0); PLATELET COUNT 211 10^3/UL (140-415); RED BLOOD COUNT 5.52 10^6/ul (4.20-5.40); RED CELL DISTRIBUTION WIDTH 15.6 % (11.5-14.5); WHITE BLOOD COUNT 8.1 10^3/ul (4.8-10.8)
[2016-12-29 07:03] LABS: ALBUMIN 3.8 g/dl (3.3-4.9); ALBUMIN/GLOBULIN RATIO 1.26; BILIRUBIN,INDIRECT 0.5 mg/dl (0-1.1); BILIRUBIN,TOTAL 0.5 mg/dl (0.2-1.3); CALCIUM 9.3 mg/dl (8.4-10.2); CREATININE 0.46 mg/dl (0.44-1.00); POTASSIUM 4.6 mmol/L (3.5-5.1); TOTAL PROTEIN 6.8 g/dl (6.1-8.1)
--- NOTE | 2016-12-29 07:40 | PN ---
Date/Time of Note Date/Time of Note DATE: 12/29/16 TIME: 07:37 Assessment/Plan VTE Prophylaxis VTE Prophylaxis Intervention: other Lines/Catheters IV [facility] ([facility] Peripheral IV Urinary Cath still in place: No Assessment/Plan Assessment/Plan 1. Tube feed is in place, will query pole maker best approach to tube feed at home, goal re calories and other supplements needed. 2. Abnl liver tests persist, mrcp noted. 3. Elev Hct, suspect lab error, will replete 4. Low Vit D3, will replete once tube function assured. 5. Case management notified dc is imminent. Subjective 24 Hr Interval Summary Subjective hx not possible: other (comfortable) Exam/Review of Systems Vital Signs Vitals Vital Signs Date Time Temp Pulse Resp B/P Pulse Ox O2 Delivery O2 Flow Rate FiO2 12/28/16 21:54 98.0 87 19 118/91 98 12/28/16 13:18 Room Air 12/28/16 12:28 15 Intake and Output 12/28/16 12/28/16 12/29/16 15:00 23:00 07:00 Intake Total 300 ml Balance 300 ml Exam Neck: No jvd Respiratory: clear to auscultation Cardiovascular: regular rate and rhythm Gastrointestinal: other (fed tube is in place), soft Extremities: No edema Results Result Diagram: 12/29/16 0459 12/29/16 0459 Results 24 hrs Laboratory Tests Test 12/28/16 08:25 12/29/16 04:59 Sodium Level 140 139 Potassium Level 4.3 4.6 Chloride Level 107 107 Carbon Dioxide Level 22 21 Anion Gap 15 16 Blood Urea Nitrogen 10 6 L Creatinine 0.50 0.46 Glucose Level 94 # 79 Calcium Level 9.0 9.3 Total Bilirubin 0.3 0.5 Direct Bilirubin 0.00 0.00 Indirect Bilirubin 0.3 0.5 Aspartate Amino Transf (AST/SGOT) 107 H 104 H Alanine Aminotransferase (ALT/SGPT) 123 H 115 H Alkaline Phosphatase 73 83 Total Protein 6.3 6.8 Albumin 3.5 3.8 Globulin 2.80 3.00 Albumin/Globulin Ratio 1.25 1.26 White Blood Count 8.1 Red Blood Count 5.52 H Hemoglobin 16.4 H Hematocrit 50.0 H Mean Corpuscular Volume 90.6 Mean Corpuscular Hemoglobin 29.7 Mean Corpuscular Hemoglobin Concent 32.8 Red Cell Distribution Width 15.6 H Platelet Count 211 # Mean Platelet Volume 11.2 H Neutrophils % 62.0 Lymphocytes % 27.2 Monocytes % 5.7 Eosinophils % 2.1 Basophils % 0.9 Nucleated Red Blood Cells % 0.0 Neutrophils # 5.0 Lymphocytes # 2.2 Monocytes # 0.5 Eosinophils # 0.2 Basophils # 0.1 Nucleated Red Blood Cells # 0.0 Medications Medications Current Medications Ondansetron HCl (Zofran Inj) 4 mg Q6H PRN IV NAUSEA AND/OR VOMITING; Start 05/27 at 16:30 Acetaminophen (Tylenol Tab) 650 mg Q6H PRN PO PAIN LEVEL 1-3 OR FEVER; Start at 16:30 Docusate Sodium (Colace) 100 mg Q12H PRN PO CONSTIPATION; Start 12/19/16 at 16: 30 Magnesium Hydroxide (Milk Of Mag) 30 ml DAILY PRN PO CONSTIPATION; Start at 16:30 Heparin Sodium (Porcine) (Heparin (5000 Units/0.5 ml)) 5,000 unit BID SC Last administered on 12/28/16 20:45; Admin Dose 5,000 UNIT; Start 12/19/16 at 21:00 Miscellaneous Information (Pending Santyl Order For Wound Care) This patient martinez... PRN PRN XX WOUND CARE; Start 12/20/16 at 05:00 Sorbitol (Sorbitol 70%) 30 ml BID PRN PO CONSTIPATION; Start 12/20/16 at 10:00 Morphine Sulfate (morphine) 2 mg Q2H PRN IV PAIN; Start 12/20/16 at 12:30 Morphine Sulfate 4 mg 4 mg Q3H PRN IV PAIN LEVEL 7-10 Last administered on 12/20 18:01; Admin Dose 4 MG; Start 12/20/16 at 12:30 Potassium Chloride/Dextrose/ Sod Cl (D5-1/2ns + KCl 20 Meq) 1,000 ml @ 50 mls/ hr Q20H IV Last administered on 12/29/16 00:37; Admin Dose 50 MLS/HR; Start at 23:00 LAURITA ESPINO MD Dec 29, 2016 07:40
[2016-12-29 08:00] VITALS: BP 119/75; RESP 18
[2016-12-29] MEDS: HEPARIN 5,000 UNIT/0.5 ML VIAL SC SCH ×2 (08:08→20:55)
[2016-12-29] MEDS: morphine 2 MG INJ IV PRN ×2 (08:11→18:01)
[2016-12-29 22:51] VITALS: BP 121/69; RESP 18
[2016-12-30] MEDS: morphine 4 MG/ML VIAL IV PRN (00:12)
[2016-12-30 05:13] LABS: ADD SCAN DIFF NO
[2016-12-30 05:15] LABS: BASOPHIL # 0.1 10^3/ul (0.0-0.1); BASOPHILS % 0.6 % (0.0-2.0); EOSINOPHILS # 0.2 10^3/ul (0.0-0.5); EOSINOPHILS % 1.5 % (0.0-7.0); HEMATOCRIT 45.7 % (37.0-47.0); LYMPHOCYTES # 2.3 10^3/ul (0.8-2.9); LYMPHOCYTES % 20.3 % (15.0-51.0); MEAN CORPUSCULAR HEMOGLOBIN 29.4 pg (29.0-33.0); MEAN CORPUSCULAR HGB CONC 32.8 g/dl (32.0-37.0); MEAN CORPUSCULAR VOLUME 89.6 fl (82.0-101.0); MEAN PLATELET VOLUME 9.8 fl (7.4-10.4); MONOCYTE # 0.7 10^3/ul (0.3-0.9); MONOCYTES % 6.5 % (0.0-11.0); NEUTROPHILS % 69.8 % (39.0-77.0); PLATELET COUNT 303 10^3/UL (140-415); RED CELL DISTRIBUTION WIDTH 15.2 % (11.5-14.5); WHITE BLOOD COUNT 11.4 10^3/ul (4.8-10.8)
[2016-12-30 05:37] LABS: MAGNESIUM 1.9 mg/dl (1.7-2.5); PHOSPHORUS 3.3 mg/dl (2.5-4.9)
[2016-12-30 05:45] LABS: ALBUMIN 3.5 g/dl (3.3-4.9); ALBUMIN/GLOBULIN RATIO 1.29; BILIRUBIN,INDIRECT 0.1 mg/dl (0-1.1); BILIRUBIN,TOTAL 0.1 mg/dl (0.2-1.3); CALCIUM 8.9 mg/dl (8.4-10.2); CREATININE 0.44 mg/dl (0.44-1.00); POTASSIUM 4.7 mmol/L (3.5-5.1); TOTAL PROTEIN 6.2 g/dl (6.1-8.1)
--- NOTE | 2016-12-30 07:50 | CONS ---
Date/Time of Note Date/Time of Note DATE: 12/30/16 TIME: 07:49 Assessment/Plan Assessment/Plan Additional Assessment/Plan 1. Status quo, tube feeding working well. 2. Vit D def, supplment started. 3. DC planning in progress-family has decided on ecf 4. Sl inc wbc, w/u initiated Consultation Date/Type/Reason Admit Date/Time Dec 19, 2016 at 14:55 Initial Consult Date Type of Consultation: neph 24 HR Interval Summary Subjective hx not possible: other (reasonably comfortable) Detailed Summary Respiratory: cough Exam/Review of Systems Vital Signs Vitals Vital Signs Date Time Temp Pulse Resp B/P Pulse Ox O2 Delivery O2 Flow Rate FiO2 12/29/16 22:51 98.2 89 18 121/69 99 12/28/16 13:18 Room Air 12/28/16 12:28 15 Intake and Output 12/29/16 12/29/16 12/30/16 15:00 23:00 07:00 Intake Total 1125 ml 1080 ml Balance 1125 ml 1080 ml Exam Neck: No jvd Respiratory: clear to auscultation Cardiovascular: regular rate and rhythm Gastrointestinal: soft Extremities: No edema Neurological: other (quadrapereisis ) Results Result Diagram: 12/30/16 0455 12/30/16 0455 Results 24 hrs Laboratory Tests Test 12/30/16 04:55 White Blood Count 11.4 #H Red Blood Count 5.10 Hemoglobin 15.0 Hematocrit 45.7 Mean Corpuscular Volume 89.6 Mean Corpuscular Hemoglobin 29.4 Mean Corpuscular Hemoglobin Concent 32.8 Red Cell Distribution Width 15.2 H Platelet Count 303 # Mean Platelet Volume 9.8 Neutrophils % 69.8 Lymphocytes % 20.3 Monocytes % 6.5 Eosinophils % 1.5 Basophils % 0.6 Nucleated Red Blood Cells % 0.0 Neutrophils # 8.0 H Lymphocytes # 2.3 Monocytes # 0.7 Eosinophils # 0.2 Basophils # 0.1 Nucleated Red Blood Cells # 0.0 Sodium Level 140 Potassium Level 4.7 Chloride Level 103 Carbon Dioxide Level 28 Anion Gap 14 Blood Urea Nitrogen 9 Creatinine 0.44 Glucose Level 121 # Calcium Level 8.9 Phosphorus Level 3.3 Magnesium Level 1.9 Total Bilirubin 0.1 L Direct Bilirubin 0.00 Indirect Bilirubin 0.1 Aspartate Amino Transf (AST/SGOT) 59 H Alanine Aminotransferase (ALT/SGPT) 94 H Alkaline Phosphatase 86 Total Protein 6.2 Albumin 3.5 Globulin 2.70 Albumin/Globulin Ratio 1.29 Medications Medications Current Medications Ondansetron HCl (Zofran Inj) 4 mg Q6H PRN IV NAUSEA AND/OR VOMITING; Start 05/27 at 16:30 Acetaminophen (Tylenol Tab) 650 mg Q6H PRN PO PAIN LEVEL 1-3 OR FEVER; Start at 16:30 Docusate Sodium (Colace) 100 mg Q12H PRN PO CONSTIPATION; Start 12/19/16 at 16: 30 Magnesium Hydroxide (Milk Of Mag) 30 ml DAILY PRN PO CONSTIPATION; Start at 16:30 Heparin Sodium (Porcine) (Heparin (5000 Units/0.5 ml)) 5,000 unit BID SC Last administered on 12/29/16 20:55; Admin Dose 5,000 UNIT; Start 12/19/16 at 21:00 [facility] This patient martinez... PRN PRN XX WOUND CARE; Start 12/20/16 at 05:00 Sorbitol (Sorbitol 70%) 30 ml BID PRN PO CONSTIPATION; Start 12/20/16 at 10:00 Morphine Sulfate (morphine) 2 mg Q2H PRN IV PAIN Last administered on 18:01; Admin Dose 2 MG; Start 12/20/16 at 12:30 Morphine Sulfate 4 mg 4 mg Q3H PRN IV PAIN LEVEL 7-10 Last administered on 12/30 00:12; Admin Dose 4 MG; Start 12/20/16 at 12:30 Potassium Chloride/Dextrose/ Sod Cl (D5-1/2ns + KCl 20 Meq) 1,000 ml @ 50 mls/ hr Q20H IV Last administered on 12/29/16 20:55; Admin Dose 50 MLS/HR; Start at 23:00 Multivitamins (Multivitamin) 30 ml DAILY GTB ; Start 12/30/16 at 09:00 Ascorbic Acid (Vitamin C) 500 mg DAILY GTB ; Start 12/30/16 at 09:00 Zinc Sulfate (Zinc Sulfate) 220 mg DAILY GTB ; Start 12/30/16 at 09:00 LAURITA ESPINO MD Dec 30, 2016 07:50
[2016-12-30 08:00] VITALS: BP 132/64; RESP 18
[2016-12-30] MEDS ORDERED: CHOLECALCIFEROL 2,000 UNIT CAP NGT SCH (09:00)
[2016-12-30] MEDS ORDERED: MULTIVITAMINS 30 ML CUP GTB SCH (09:00)
[2016-12-30] MEDS: ASCORBIC ACID 500 MG TAB GTB SCH (09:32)
[2016-12-30] MEDS: ZINC SULFATE 220 MG CAP GTB SCH (09:32)
[2016-12-30] MEDS: HEPARIN 5,000 UNIT/0.5 ML VIAL SC SCH ×2 (09:39→20:33)
--- NOTE | 2016-12-30 12:45 | RADRPT ---
PROCEDURE: XR Chest AP portable CLINICAL INDICATION: Elevated WBC TECHNIQUE: An AP portable radiograph of the chest was submitted. COMPARISON: 12/19/2016 FINDINGS: Support Hardware: None Cardiovascular: The cardiovascular silhouette appears unremarkable. Lung Alvarez: The lung alvarez appear clear with no nodule, alveolar infiltrate, or interstitial promi nence evident. Pleural Spaces: No pneumothorax or pleural effusion is identified. Osseous Structures: The osseous structures appear intact. Soft Tissues: Residual contrast is seen within bowel and a gastrostomy tube is now evident. IMPRESSION: 1. Contrast is not seen within bowel and a gastrostomy tube is present. 2. Otherwise, stable unremarkable portable chest. Physician Sveta Date Time Electronically viewed and signed by Physician Sveta on 12/30/2016 12:44 /
[2016-12-30] MEDS: D5W-0.45 NACL + KCL 20 MEQ 1,000 ML IV SCH (18:13)
[2016-12-31 01:41] LABS: ADD UMIC YES; UR ASCORBIC ACID 20 mg/dL (NEGATIVE); UR BACTERIA FEW /HPF (NONE SEEN); UR BILIRUBIN (Dip) NEGATIVE (NEGATIVE); UR BLOOD (Dip) 2+ mg/dL (NEGATIVE); UR CLARITY CLEAR (CLEAR); UR COLOR YELLOW (YELLOW); UR GLUCOSE (Dip) NEGATIVE (NEGATIVE); UR KETONES (Dip) NEGATIVE (NEGATIVE); UR LEUKOCYTE ESTERASE (Dip) TRACE Leu/ul (NEGATIVE); UR NITRITE (Dip) NEGATIVE (NEGATIVE); UR RBC 8 /HPF (0-5); UR SPECIFIC GRAVITY (Dip) 1.004 (1.003-1.030); UR TOTAL PROTEIN (Dip) NEGATIVE (NEGATIVE); UR UROBILINOGEN (Dip) NEGATIVE (NEGATIVE)
[2016-12-31 06:56] LABS: ADD SCAN DIFF NO
[2016-12-31 07:06] LABS: BASOPHIL # 0.1 10^3/ul (0.0-0.1); BASOPHILS % 0.9 % (0.0-2.0); EOSINOPHILS # 0.2 10^3/ul (0.0-0.5); HEMATOCRIT 44.4 % (37.0-47.0); HEMOGLOBIN 14.1 g/dl (12.0-16.0); LYMPHOCYTES # 2.3 10^3/ul (0.8-2.9); MEAN CORPUSCULAR HEMOGLOBIN 28.9 pg (29.0-33.0); MEAN CORPUSCULAR HGB CONC 31.8 g/dl (32.0-37.0); MEAN PLATELET VOLUME 11.1 fl (7.4-10.4); MONOCYTE # 0.5 10^3/ul (0.3-0.9); MONOCYTES % 5.2 % (0.0-11.0); NEUTROPHIL # 6.3 10^3/ul (1.6-7.5); NEUTROPHILS % 66.5 % (39.0-77.0); PLATELET COUNT 340 10^3/UL (140-415); RED BLOOD COUNT 4.88 10^6/ul (4.20-5.40); RED CELL DISTRIBUTION WIDTH 15.2 % (11.5-14.5); WHITE BLOOD COUNT 9.4 10^3/ul (4.8-10.8)
[2016-12-31 07:56] LABS: CALCIUM 8.9 mg/dl (8.4-10.2); CREATININE 0.45 mg/dl (0.44-1.00); PHOSPHORUS 3.3 mg/dl (2.5-4.9); POTASSIUM 4.2 mmol/L (3.5-5.1)
[2016-12-31 08:00] VITALS: BP 126/64; RESP 20
--- NOTE | 2016-12-31 08:34 | CONS ---
Date/Time of Note Date/Time of Note DATE: 12/31/16 TIME: 08:31 Assessment/Plan Assessment/Plan Additional Assessment/Plan 1. MS, status quo 2. WBC is now nl, cxr nl, urine cult pending 3. Tube feeding is working well and rate has inc to 50cc/hr 4. Await case management and family to decide what ecf that would like 5. Labs rev Consultation Date/Type/Reason Admit Date/Time Dec 19, 2016 at 14:55 Type of Consultation: neph 24 HR Interval Summary Subjective hx not possible: other (comfortable) Exam/Review of Systems Vital Signs Vitals Vital Signs Date Time Temp Pulse Resp B/P Pulse Ox O2 Delivery O2 Flow Rate FiO2 12/30/16 08:00 97.8 78 18 132/64 96 12/28/16 13:18 Room Air 12/28/16 12:28 15 Intake and Output 12/30/16 12/30/16 12/31/16 15:00 23:00 07:00 Intake Total 1080 ml Balance 1080 ml Exam Neck: No jvd Respiratory: clear to auscultation Cardiovascular: regular rate and rhythm Gastrointestinal: soft Extremities: No edema Neurological: other (quadraperiesis ) Skin: other (rev and exam with NA->no skin breakdown) Results Result Diagram: 12/31/16 0550 12/31/16 0550 Results 24 hrs Laboratory Tests Test 12/31/16 00:30 12/31/16 05:50 Urine Color YELLOW Urine Clarity CLEAR Urine pH 7.0 Urine Specific [place] 1.004 Urine Ketones NEGATIVE Urine Nitrite NEGATIVE Urine Bilirubin NEGATIVE Urine Urobilinogen NEGATIVE Urine Leukocyte Esterase TRACE A Urine Microscopic RBC 8 H Urine Microscopic WBC 4 Urine Bacteria FEW A Urine Hemoglobin 2+ H Urine Glucose NEGATIVE Urine Total Protein NEGATIVE White Blood Count 9.4 Red Blood Count 4.88 Hemoglobin 14.1 Hematocrit 44.4 Mean Corpuscular Volume 91.0 Mean Corpuscular Hemoglobin 28.9 L Mean Corpuscular Hemoglobin Concent 31.8 L Red Cell Distribution Width 15.2 H Platelet Count 340 Mean Platelet Volume 11.1 H Neutrophils % 66.5 Lymphocytes % 24.0 Monocytes % 5.2 Eosinophils % 2.0 Basophils % 0.9 Nucleated Red Blood Cells % 0.0 Neutrophils # 6.3 Lymphocytes # 2.3 Monocytes # 0.5 Eosinophils # 0.2 Basophils # 0.1 Nucleated Red Blood Cells # 0.0 Sodium Level 138 Potassium Level 4.2 Chloride Level 104 Carbon Dioxide Level 27 Anion Gap 11 Blood Urea Nitrogen 8 Creatinine 0.45 Glucose Level 104 Calcium Level 8.9 Phosphorus Level 3.3 Magnesium Level 2.0 Medications Medications Current Medications Ondansetron HCl (Zofran Inj) 4 mg Q6H PRN IV NAUSEA AND/OR VOMITING; Start 05/27 at 16:30 Acetaminophen (Tylenol Tab) 650 mg Q6H PRN PO PAIN LEVEL 1-3 OR FEVER; Start at 16:30 Docusate Sodium (Colace) 100 mg Q12H PRN PO CONSTIPATION; Start 12/19/16 at 16: 30 Magnesium Hydroxide (Milk Of Mag) 30 ml DAILY PRN PO CONSTIPATION; Start at 16:30 Heparin Sodium (Porcine) (Heparin (5000 Units/0.5 ml)) 5,000 unit BID SC Last administered on 12/30/16 20:33; Admin Dose 5,000 UNIT; Start 12/19/16 at 21:00 Miscellaneous Information (Pending Santyl Order For Wound Care) This patient martinez... PRN PRN XX WOUND CARE; Start 12/20/16 at 05:00 Sorbitol (Sorbitol 70%) 30 ml BID PRN PO CONSTIPATION; Start 12/20/16 at 10:00 Morphine Sulfate (morphine) 2 mg Q2H PRN IV PAIN Last administered on 18:01; Admin Dose 2 MG; Start 12/20/16 at 12:30 Morphine Sulfate 4 mg 4 mg Q3H PRN IV PAIN LEVEL 7-10 Last administered on 12/30 00:12; Admin Dose 4 MG; Start 12/20/16 at 12:30 Potassium Chloride/Dextrose/ Sod Cl (D5-1/2ns + KCl 20 Meq) 1,000 ml @ 50 mls/ hr Q20H IV Last administered on 12/30/16 18:13; Admin Dose 50 MLS/HR; Start at 23:00 Multivitamins (Multivitamin) 30 ml DAILY GTB Last administered on 12/30/16 13: 30; Admin Dose 30 ML; Start 12/30/16 at 09:00 Ascorbic Acid (Vitamin C) 500 mg DAILY GTB Last administered on 12/30/16 09:32 ; Admin Dose 500 MG; Start 12/30/16 at 09:00 Zinc Sulfate (Zinc Sulfate) 220 mg DAILY GTB Last administered on 12/30/16 09: 32; Admin Dose 220 MG; Start 12/30/16 at 09:00 Cholecalciferol (Vitamin D) 5,000 unit DAILY NGT ; Start 12/31/16 at 09:00 LARUITA ESPINO MD Dec 31, 2016 08:34
[2016-12-31] MEDS: ASCORBIC ACID 500 MG TAB GTB SCH (09:47)
[2016-12-31] MEDS: ZINC SULFATE 220 MG CAP GTB SCH (09:47)
[2016-12-31] MEDS: CHOLECALCIFEROL 1,000 UNIT TAB NGT SCH (09:48)
[2016-12-31] MEDS: HEPARIN 5,000 UNIT/0.5 ML VIAL SC SCH ×2 (09:50→21:13)
--- NOTE | 2016-12-31 13:26 | CONS ---
DATE OF ADMISSION: 12/19/2016 DATE OF CONSULTATION: CHIEF COMPLAINT: At this time, the patient is nonverbal. In fact, she is sleeping so she is unable to give me any history. PHYSICAL EXAMINATION: ABDOMEN: Status post percutaneous endoscopic gastrostomy tube placement. Abdomen is soft. She is tolerating 50 mL per hour of the feeding. LABORATORY WORKUP: The SGOT improved to 59 from 107, SGPT improved to 94 from 123. CLINICAL IMPRESSION: 1. Patient tolerating the G-tube feeding. 2. Liver functions improved. Abnormal liver function is probably secondary to passing sludge from the gallbladder through the bile duct or after the flare, Diflucan has been stopped. She seem s to be improving. A drug-induced liver abnormality is a possibility. PLAN: Continue to observe the patient. Dictated By: CHINO ALFONSO/DENISSE Conf#: [id number] DID#: [id number]
[2016-12-31] MEDS: MULTIVITAMINS 30 ML CUP GTB SCH (15:49)
[2016-12-31] MEDS: D5W-0.45 NACL + KCL 20 MEQ 1,000 ML IV SCH (15:49)
[2016-12-31] MEDS: morphine 2 MG INJ IV PRN (18:53)
[2016-12-31 21:23] VITALS: BP 102/66; RESP 17
[2016-12-31 21:27] VITALS: BP 125/60; RESP 20
[2017-01-01 08:00] VITALS: BP 107/71; PULSE 91; RESP 18
[2017-01-01] MEDS: ASCORBIC ACID 500 MG TAB GTB SCH (09:46)
[2017-01-01] MEDS: MULTIVITAMINS 30 ML CUP GTB SCH (09:46)
[2017-01-01] MEDS: ZINC SULFATE 220 MG CAP GTB SCH (09:46)
[2017-01-01] MEDS: CHOLECALCIFEROL 1,000 UNIT TAB NGT SCH (09:46)
[2017-01-01] MEDS: HEPARIN 5,000 UNIT/0.5 ML VIAL SC SCH (09:48)
[2017-01-01] MEDS: D5W-0.45 NACL + KCL 20 MEQ 1,000 ML IV SCH (09:49)
--- NOTE | 2017-01-01 14:05 | PN ---
Date/Time of Note Date/Time of Note DATE: 01/01/17 TIME: 14:01 Assessment/Plan VTE Prophylaxis VTE Prophylaxis Intervention: heparin Lines/Catheters IV Catheter Type (from Nrs): Peripheral IV Urinary Cath still in place: No Assessment/Plan Chief Complaint/Hosp Course 46 y/o female with advanced MS admitted for multisource sepsis 12/19/16. Now back to baseline but poor oral intake s/p feeding tube placement. Problems: Assessment/Plan #MS-advanced -placement at [facility] today #sepsis-resolved #lft abnormality-likely 2/2 fluconazole #FTT -s/p feeding tube Dispo: cleared for d/c to ECF today Subjective 24 Hr Interval Summary Free Text/Dictation Patient able to mouth one word answers. Reports that she is not in pain and is comfortable. Reports that she remembers me from day of admission. No acute overnight events. Exam/Review of Systems Vital Signs Vitals Vital Signs Date Time Temp Pulse Resp B/P Pulse Ox O2 Delivery O2 Flow Rate FiO2 01/01/17 08:00 98.7 91 18 107/71 97 Room Air 12/28/16 12:28 15 Intake and Output 12/31/16 12/31/16 01/01/17 15:00 23:00 07:00 Intake Total 1310 ml 1360 ml Balance 1310 ml 1360 ml Exam Gen-NAD HEENT-MMM, OP clear CV-RRR nml s1/s2, no m/r/g Pulm-CTAB on anterior exam Abd-soft, nt/nd, +BS ext-no c/c/e. Onnychomycosis of toes. Retracted extremities Neuro: one word answers. Results Result Diagram: 12/31/16 0550 12/31/16 0550 Medications Medications Current Medications Ondansetron HCl (Zofran Inj) 4 mg Q6H PRN IV NAUSEA AND/OR VOMITING; Start 05/27 at 16:30 Acetaminophen (Tylenol Tab) 650 mg Q6H PRN PO PAIN LEVEL 1-3 OR FEVER; Start at 16:30 Docusate Sodium (Colace) 100 mg Q12H PRN PO CONSTIPATION; Start 12/19/16 at 16: 30 Magnesium Hydroxide (Milk Of Mag) 30 ml DAILY PRN PO CONSTIPATION; Start at 16:30 Heparin Sodium (Porcine) (Heparin (5000 Units/0.5 ml)) 5,000 unit BID SC Last administered on 01/01/17 09:48; Admin Dose 5,000 UNIT; Start 12/19/16 at 21:00 Miscellaneous Information (Pending Santyl Order For Wound Care) This patient martinez... PRN PRN XX WOUND CARE; Start 12/20/16 at 05:00 Sorbitol (Sorbitol 70%) 30 ml BID PRN PO CONSTIPATION; Start 12/20/16 at 10:00 Morphine Sulfate (morphine) 2 mg Q2H PRN IV PAIN Last administered on 18:53; Admin Dose 2 MG; Start 12/20/16 at 12:30 Morphine Sulfate 4 mg 4 mg Q3H PRN IV PAIN LEVEL 7-10 Last administered on 12/30 00:12; Admin Dose 4 MG; Start 12/20/16 at 12:30 Potassium Chloride/Dextrose/ Sod Cl (D5-1/2ns + KCl 20 Meq) 1,000 ml @ 50 mls/ hr Q20H IV Last administered on 01/01/17 09:49; Admin Dose 50 MLS/HR; Start at 23:00 Ascorbic Acid (Vitamin C) 500 mg DAILY GTB Last administered on 01/01/17 09:46 ; Admin Dose 500 MG; Start 12/30/16 at 09:00 Zinc Sulfate (Zinc Sulfate) 220 mg DAILY GTB Last administered on 01/01/17 09: 46; Admin Dose 220 MG; Start 12/30/16 at 09:00 Cholecalciferol (Vitamin D) 5,000 unit DAILY NGT Last administered on 09:46; Admin Dose 5,000 UNIT; Start 12/31/16 at 09:00 Multivitamins (Multivitamin) 30 ml DAILY GTB Last administered on 01/01/17 09: 46; Admin Dose 30 ML; Start 12/31/16 at 09:00 JERAMIE BRUNSON MD Jan 01, 2017 14:05
--- NOTE | 2017-01-01 14:07 | DS ---
Date/Time of Note Date/Time of Note DATE: 01/01/17 TIME: 14:05 Discharge Summary Admission/Discharge Info Admit Date/Time Dec 19, 2016 at 14:55 Discharge Date/Time 01/01/17 Discharge Diagnosis Advanced Multiple Sclerosis Patient Condition: Fair Consults GI, ENT Procedures PEG tube placement Hx of Present Illness 46 y/o female with advanced MS. Brought in by family for low grade fever, diarrhea x2, decreased po intake and hard palate pain. Patient also had one episode of emesis last night. Patient can only give simple one word answers. Denies abdominal pain but endorses oral pain. In ER patient had sepsis workup. Was empirically treated with IV vanc, cefepime. CT abdomen, pelvis done, no acute findings at this time.Found to have UTI. ENT called to evaluate hard palate for possible infection. History provided mostly by family. Primary point of contact is Lizbet, daughter. Hospital Course 46 y/o female with advanced MS admitted for multisource sepsis 12/19/16. Now back to baseline but poor oral intake s/p feeding tube placement. Home Meds No Active Prescriptions or Reported Meds Follow-up Plan Follow up with PMD 1-2 weeks after discharge Primary Care Provider Nguyễn Meredith MD Time spent on discharge: < 30 minutes JERAMIE BRUNSON MD Jan 01, 2017 14:07
[2017-01-01] MEDS: morphine 2 MG INJ IV PRN (18:20)
== END 2017-01-01 18:34 | DRG 871 ==
LOC: E/R 12:39 → MS2 14:55 → TEL 18:28 → PP2 12-27 11:59
PROVIDERS: ADMIT Internal Medicine; ATTEND Internal Medicine
PROC: 0DH63UZ Insertion of Feeding Device into Stomach, Percutaneous Approach (ICD-10-PCS; principal; 2016-12-28 12:00)
DX: A41.9 Sepsis, unspecified organism (principal); G82.50 Quadriplegia, unspecified; R64 Cachexia; G35 Multiple sclerosis; R13.10 Dysphagia, unspecified; B37.0 Candidal stomatitis; N30.00 Acute cystitis without hematuria; Z68.1 Body mass index [BMI] 19.9 or less, adult; F32.9 Major depressive disorder, single episode, unspecified; K59.00 Constipation, unspecified; E87.8 Other disorders of electrolyte and fluid balance, not elsewhere classified; E55.9 Vitamin D deficiency, unspecified; B35.1 Tinea unguium; R74.8 Abnormal levels of other serum enzymes
CPT/HCPCS: 36415; 36600; 71010; 74177; 74181; 74230; 80048; 80053; 80202; 81001; 82306; 82607; 82803; 83605; 83735; 84100; 84132; 84134; 84443; 84484; 85025; 85610; 87040; 87086; 92526; 92610; 92611; 93005; 96365; 96366; 96368; J1940; A4310; J0690; J0692; J1450; J1644; J2001; J2270; J3010; J3370; J3475; J3480; J7030; J7042; J7050; J7070; Q9967